=== PATIENT | female | born 1995 | race Caucasian/White ===

== ENCOUNTER 2017-01-11 22:07 | Emergency (ER) | payer OTHER ==
[2017-01-11 22:15] VITALS: TEMP 98
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
[2017-01-12] MEDS ORDERED: LORazepam 1 MG TAB PO STA (01:28)
[2017-01-12 01:43] VITALS: BP 124/64; PULSE 90; RESP 20
== END 2017-01-12 01:42 | disposition home or self-care (01) ==
LOC: EC 22:07
DX: F41.9 Anxiety disorder, unspecified (principal); R45.851 Suicidal ideations; F32.9 Major depressive disorder, single episode, unspecified; F17.200 Nicotine dependence, unspecified, uncomplicated; Z88.5 Allergy status to narcotic agent; Z88.8 Allergy status to other drugs, medicaments and biological substances; Z79.899 Other long term (current) drug therapy
CPT/HCPCS: 80306; 81025; 82075; 99284

== ENCOUNTER 2017-03-24 17:27 | Emergency (ER) | payer OTHER ==
[2017-03-24 17:52] VITALS: RESP 18; TEMP 98.2
[2017-03-24] MEDS ORDERED: SODIUM CHLORIDE 0.9% 1,000 ML IV STA ×2 (18:28)
[2017-03-24 18:51] LABS: Appearance,Urine Cloudy (Clear); Bacteria,Urine Rare /hpf; Bilirubin,Urine Negative (Negative); Glucose,Urine (UA) Negative (Negative); Ketones,Urine Negative (Negative); Leukocyte Esterase,Urine Moderate (Negative); Mucus,Urine Few /hpf; Nitrite,Urine Negative (Negative); Particle Count 14581; Protein,Urine Trace (Negative); RBC,Urine 1 /hpf (0-5); Specific Gravity,Urine 1.016 (1.001-1.035); Squamous Epithelial Cell,Urine 39 /hpf (0-4); UA Billing (MACRO vs. MICRO) MICRO; WBC,Urine 6 /hpf (0-5)
[2017-03-24] MEDS ORDERED: ONDANSETRON 4 MG/2 ML VIAL IVP STA (19:37)
[2017-03-24] MEDS ORDERED: KETOROLAC 30 MG/ML 1 ML VIAL IVP STA (19:37)
--- NOTE | 2017-03-24 19:42 | ED ---
Abdominal Pain HPI - General Chief Complaint: Abdominal Pain Stated Complaint: RT SIDE PAIN, NV FLU LIKE SYMPTOMS Time Seen by Provider: 03/24/17 18:18 Source: patient, RN notes reviewed Mode of arrival: ambulatory Limitations: no limitations - History of Present Illness Initial Comments: This is a 21-year-old female with chief complaint of 2 weeks of right upper quadrant and right flank abdominal pain. Patient reports that she's her primary care provider 2 days ago and was told that she had blood in her urine. She denies any other associated symptoms like dysuria or polyuria. Patient states that she's had no fever was felt chilled. She reports that she's had no nausea or vomiting, diarrhea or blood in her stools. 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 She states that the pain seems to be worse with eating however she does notice a constant dull pain. She reports that she's not been able to eat or drink much and feels very dehydrated. She denies any chest pain, shortness of breath, headache, peripheral paresthesias, vaginal discharge. - Related Data Home Medications Medication Instructions Recorded Confirmed Dicyclomine HCl 10 mg PO BID PRN 06/09/16 03/24/17 LORazepam [Ativan] 1 mg PO BID PRN 01/11/17 03/24/17 Ziprasidone HCl [Geodon] 40 mg PO BID 01/11/17 03/24/17 traZODone HCL 300 mg PO HS 01/11/17 03/24/17 Cyclobenzaprine [Flexeril] 10 mg PO HS 03/24/17 03/24/17 Fluticasone Nasal Shell [Flonase 2 spr EA NOSTRIL DAILY PRN 03/24/17 03/24/17 Nasal Shell] Prazosin [Minipress] 1 mg PO HS 03/24/17 03/24/17 Previous Rx's Medication Instructions Recorded DULoxetine HCL [Cymbalta] 60 mg PO DAILY 30 Days 06/14/16 hydrOXYzine PAMOATE [Vistaril] 25 mg PO DAILY 30 Days 06/14/16 Acetaminophen-Codeine 300-30mg 1 tab PO Q6H PRN #8 tablet 03/24/17 [Tylenol #3] Ciprofloxacin HCl [Cipro] 500 mg PO Q12HR #14 tablet 03/24/17 Ondansetron Odt [Zofran Odt] 4 mg PO Q8HR PRN #12 tab 03/24/17 Allergies Allergy/AdvReac Type Severity Reaction Status Date / Time morphine AdvReac Severe Nausea & Verified 03/24/17 18:45 Vomiting phenobarbital AdvReac pt becomes Verified 03/24/17 18:45 extremely aggressive Review of Systems ROS Statement: Those systems with pertinent positive or pertinent negative responses have been documented in the HPI. ROS Other: All systems not noted in ROS Statement are negative. 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 Liver tumor History of Any Multi-Drug Resistant Organisms: None Reported Additional Past Surgical History / Comment(s): BMT. JAW SX TO MOVE JAW FORWARD 3 INCHES-HAS PLATES AND SCREWS. PEG TUB PLACED CHILD AND REMOVED. resection of liver 05/19/15 Past Anesthesia/Blood Transfusion Reactions: No Reported Reaction Past Psychological History: Anxiety, Bipolar, Depression Additional Psychological History / Comment(s): PERISYLVAIN SYNDROME Smoking Status: Current some day smoker Past Alcohol Use History: Occasional Past Drug Use History: None Reported - Past Family History Mother Family Medical History: No Reported History General Exam - General Exam Comments Initial Comments: This is a pleasant 21-year-old female. No distress. Limitations: no limitations General appearance: alert, in no apparent distress Head exam: Present: atraumatic, normocephalic, normal inspection Eye exam: Present: normal appearance, PERRL, EOMI. Absent: scleral icterus, conjunctival injection, periorbital swelling ENT exam: Present: normal exam, normal oropharynx, mucous membranes moist, TM's normal bilaterally Neck exam: Present: normal inspection. Absent: tenderness, meningismus, lymphadenopathy Respiratory exam: Present: normal lung sounds bilaterally. Absent: respiratory distress, wheezes, rales, rhonchi, stridor Cardiovascular Exam: Present: regular rate, normal rhythm, normal heart sounds. Absent: systolic murmur, diastolic murmur, rubs, gallop, clicks GI/Abdominal exam: Present: soft, tenderness (Right upper quadrant tenderness.) , normal bowel sounds. Absent: distended, guarding, rebound, rigid Extremities exam: Present: normal inspection, full ROM, normal capillary refill. Absent: tenderness, pedal edema, joint swelling, calf tenderness Back exam: Present: normal inspection, full ROM, tenderness (Patient has right flank tenderness.) Neurological exam: Present: alert, oriented X3, CN II-XII intact Psychiatric exam: Present: normal affect, normal mood Skin exam: Present: warm, dry, intact, normal color. Absent: rash Course Vital Signs 03/24/17 03/24/17 03/24/17 17:47 20:58 22:47 Temperature 98.2 F Pulse Rate 104 H 102 H 90 Respiratory 18 18 18 Rate Blood Pressure 117/77 136/85 115/78 O2 Sat by Pulse 99 100 98 Oximetry Medical Decision Making - Medical Decision Making Physical pleasant 21-year-old female with chief complaint of right upper quadrant flank pain. All lab work was reviewed and is negative except for a blood in her urine. denies being on her period, vaginal discharge. All of her imaging studies were negative. No evidence of cholecystitis, CAT scan is negative. Patient will be discharged at this time with nausea medication. Instructed to follow-up with her primary care provider if symptoms continue persist. She will be started on antibiotic for UTI. Patient agrees to treatment plan will comply. Return parameters were discussed. - Lab Data Result diagrams: 03/24/17 19:30 03/24/17 19:30 Lab Results 03/24/17 03/24/17 03/24/17 Range/Units 18:30 18:30 19:30 WBC (3.8-10.6) k/uL RBC (3.80-5.40) m/uL Hgb (11.4-16.0) gm/dL Hct (34.0-46.0) % MCV (80.0-100.0) fL MCH (25.0-35.0) pg MCHC (31.0-37.0) g/dL RDW (11.5-15.5) % Plt Count (150-450) k/uL Neutrophils % % Lymphocytes % % Monocytes % % Eosinophils % % Basophils % % Neutrophils # (1.3-7.7) k/uL Lymphocytes # (1.0-4.8) k/uL Monocytes # (0-1.0) k/uL Eosinophils # (0-0.7) k/uL Basophils # (0-0.2) k/uL Sodium 139 (137-145) mmol/L Potassium 4.1 (3.5-5.1) mmol/L Chloride 105 (98-107) mmol/L Carbon Dioxide 23 (22-30) mmol/L Anion Gap 11 mmol/L BUN 9 (7-17) mg/dL Creatinine 0.63 (0.52-1.04) mg/dL Est GFR (MDRD) Af Amer >60 (>60 ml/min/1.73 sqM) Est GFR (MDRD) Non-Af >60 (>60 ml/min/1.73 sqM) Glucose 80 (74-99) mg/dL Calcium 9.5 (8.4-10.2) mg/dL Total Bilirubin 0.7 (0.2-1.3) mg/dL AST 24 (14-36) U/L ALT 27 (9-52) U/L Alkaline Phosphatase 93 (38-126) U/L Total Protein 7.8 (6.3-8.2) g/dL Albumin 4.5 (3.5-5.0) g/dL Amylase 52 (30-110) U/L Lipase 75 (23-300) U/L Urine Color Yellow Urine Appearance Cloudy H (Clear) Urine pH 7.0 (5.0-8.0) Ur Specific [place] 1.016 (1.001-1.035) Urine Protein Trace H (Negative) Urine Glucose (UA) Negative (Negative) Urine Ketones Negative (Negative) Urine Blood Moderate H (Negative) Urine Nitrite Negative (Negative) Urine Bilirubin Negative (Negative) Urine Urobilinogen 2.0 (<2.0) mg/dL Ur Leukocyte Esterase Moderate H (Negative) Urine RBC 1 (0-5) /hpf Urine WBC 6 H (0-5) /hpf Ur Squamous Epith Cells 39 H (0-4) /hpf Urine Bacteria Rare H (None) /hpf Urine Mucus Few H (None) /hpf Urine HCG, Qual Not Detected (Not Detectd) 03/24/17 Range/Units 19:30 WBC 6.3 (3.8-10.6) k/uL RBC 4.55 (3.80-5.40) m/uL Hgb 14.0 (11.4-16.0) gm/dL Hct 42.1 (34.0-46.0) % MCV 92.6 (80.0-100.0) fL MCH 30.7 (25.0-35.0) pg MCHC 33.1 (31.0-37.0) g/dL RDW 12.9 (11.5-15.5) % Plt Count 206 (150-450) k/uL Neutrophils % 63 % Lymphocytes % 28 % Monocytes % 5 % Eosinophils % 1 % Basophils % 1 % Neutrophils # 4.0 (1.3-7.7) k/uL Lymphocytes # 1.8 (1.0-4.8) k/uL Monocytes # 0.3 (0-1.0) k/uL Eosinophils # 0.1 (0-0.7) k/uL Basophils # 0.0 (0-0.2) k/uL Sodium (137-145) mmol/L Potassium (3.5-5.1) mmol/L Chloride (98-107) mmol/L Carbon Dioxide (22-30) mmol/L Anion Gap mmol/L BUN (7-17) mg/dL Creatinine (0.52-1.04) mg/dL Est GFR (MDRD) Af Amer (>60 ml/min/1.73 sqM) Est GFR (MDRD) Non-Af (>60 ml/min/1.73 sqM) Glucose (74-99) mg/dL Calcium (8.4-10.2) mg/dL Total Bilirubin (0.2-1.3) mg/dL AST (14-36) U/L ALT (9-52) U/L Alkaline Phosphatase (38-126) U/L Total Protein (6.3-8.2) g/dL Albumin (3.5-5.0) g/dL Amylase (30-110) U/L Lipase (23-300) U/L Urine Color Urine Appearance (Clear) Urine pH (5.0-8.0) Ur Specific [place] (1.001-1.035) Urine Protein (Negative) Urine Glucose (UA) (Negative) Urine Ketones (Negative) Urine Blood (Negative) Urine Nitrite (Negative) Urine Bilirubin (Negative) Urine Urobilinogen (<2.0) mg/dL Ur Leukocyte Esterase (Negative) Urine RBC (0-5) /hpf Urine WBC (0-5) /hpf Ur Squamous Epith Cells (0-4) /hpf Urine Bacteria (None) /hpf Urine Mucus (None) /hpf Urine HCG, Qual (Not Detectd) - Radiology Data Radiology results: report reviewed No acute intra-abdominal or intrapelvic process identified. Gallbladder ultrasound was negative for any acute process. KUB was normal bowel gas pattern. CT abdomen and pelvis are negative for any acute process. Disposition Clinical Impression: Right flank pain, Right upper quadrant pain, UTI (urinary tract infection) Disposition: HOME SELF-CARE Condition: Good Instructions: Abdominal Pain (ED), Urinary Tract Infection in Women (ED) Additional Instructions: Patient is follow-up with primary care provider if symptoms continue to persist. Completely antibiotic prescription as well as nausea medicine as needed. Return to the emergency department if any alarming signs or symptoms occur. Prescriptions: Acetaminophen-Codeine 300-30mg [Tylenol #3] 1 tab PO Q6H PRN #8 tablet PRN Reason: Pain Ciprofloxacin HCl [Cipro] 500 mg PO Q12HR #14 tablet Ondansetron Odt [Zofran Odt] 4 mg PO Q8HR PRN #12 tab PRN Reason: Nausea Referrals: Radha Herr DO [Primary Care Provider] - 1-2 days Time of Disposition: 22:06
[2017-03-24 19:47] LABS: Basophils % (A) 1 %; CH 29.8; CHCM 32.3; Eosinophils # (A) 0.1 k/uL (0-0.7); Eosinophils % (A) 1 %; HCT 42.1 % (34.0-46.0); HDW 2.09; Luc % (Auto) 2; Lymphocytes # (A) 1.8 k/uL (1.0-4.8); Lymphocytes % (A) 28 %; MCH 30.7 pg (25.0-35.0); MCHC 33.1 g/dL (31.0-37.0); MCV 92.6 fL (80.0-100.0); Mean Platelet Volume 9.5; Monocytes # (A) 0.3 k/uL (0-1.0); Monocytes % (A) 5 %; Neutrophils % (A) 63 %; RBC 4.55 m/uL (3.80-5.40); RDW 12.9 % (11.5-15.5); WBC 6.3 k/uL (3.8-10.6); WBC (Perox) 6.65
[2017-03-24 20:04] LABS: ALT 27 U/L (9-52); AST 24 U/L (14-36); Alkaline Phosphatase 93 U/L (38-126); Amylase 52 U/L (30-110); Anion Gap 11 mmol/L; Blood Urea Nitrogen 9 mg/dL (7-17); Calcium 9.5 mg/dL (8.4-10.2); Carbon Dioxide 23 mmol/L (22-30); Chloride 105 mmol/L (98-107); Glucose 80 mg/dL (74-99); Non-African American GFR(MDRD) >60 (>60 ml/min/1.73 sqM); Potassium 4.1 mmol/L (3.5-5.1); Sodium 139 mmol/L (137-145); Total Bilirubin 0.7 mg/dL (0.2-1.3); Total Protein 7.8 g/dL (6.3-8.2)
[2017-03-24] MEDS ORDERED: HYDROmorphone 1 MG/ML 1 ML SYRINGE IVP STA (20:46)
--- NOTE | 2017-03-24 20:57 | XR ---
EXAMINATION TYPE: XR KUB DATE OF EXAM: 03/24/2017 8:40 PM COMPARISON: NONE HISTORY: Pain TECHNIQUE: Single supine KUB image of the abdomen is obtained FINDINGS: Small bowel demonstrates no evidence for dilatation or air fluid levels. Gas and fecal material is seen in non-distended colon. No convincing evidence for pneumoperitoneum. No unusual calcifications. The lung bases are clear. The osseous structures are intact. IMPRESSION: 1. Overall nonobstructive bowel gas pattern.
--- NOTE | 2017-03-24 21:03 | US ---
EXAMINATION TYPE: US gallbladder DATE OF EXAM: 03/24/2017 8:34 PM COMPARISON: Prior US and CT in PACS CLINICAL HISTORY: Abdominal Pain. Removal of benign tumor from liver 2 years ago. Difficult exam due to large amount of overlying bowel gas EXAM MEASUREMENTS: Liver Length: 12.9 cm Gallbladder Wall: 0.2 cm CBD: 0.4 cm Right Kidney: 9.5 x 3.8 x 3.9 cm Pancreas: Obscured by bowel gas Liver: Difficult visualization due to large amount of overlying bowel gas, visualized portions wnl Gallbladder: wnl Evidence for sonographic Noriega's sign: No CBD: wnl as visualized, distal portion obscured by bowel gas Right Kidney: No hydronephrosis or masses seen IMPRESSION: 1. No distinct abnormality is appreciated with certainty.
--- NOTE | 2017-03-24 22:01 | CT ---
EXAMINATION TYPE: CT abdomen pelvis wo con DATE OF EXAM: 03/24/2017 9:55 PM COMPARISON: NONE HISTORY: RUQ pain for [address] DLP: 338.2 mGycm FINDINGS: LUNG BASES: No evidence for nodule. No evidence for infiltrate. LIVER/GB: The gallbladder is unremarkable. No space-occupying hepatic lesion. PANCREAS: No pancreatic mass identified. No inflammatory process seen. SPLEEN: No evidence for splenomegaly. No intrasplenic lesions seen. ADRENALS: No adrenal nodules identified. No evidence for thickening. KIDNEYS: No evidence for renal mass. No nephrolithiasis. No hydronephrosis. BOWEL: Appendix has a normal appearance. No evidence of bowel obstruction. No inflammatory process. Lymph nodes: No evidence for adenopathy greater than 1 cm. Abdominal aorta: Atheromatous changes seen. No evidence for aneurysm. Genital organs: No significant abnormality. Other: No significant abnormality. IMPRESSION: NO ACUTE INTRA-ABDOMINAL OR INTRAPELVIC PROCESS IDENTIFIED.
[2017-03-24] MEDS ORDERED: CIPROFLOXACIN HCL 500 MG TAB PO STA (22:09)
[2017-03-24 22:48] VITALS: BP 115/78; PULSE 90
== END 2017-03-24 22:47 | disposition home or self-care (01) ==
LOC: EC 17:27
DX: N39.0 Urinary tract infection, site not specified (principal); R10.11 Right upper quadrant pain; F31.9 Bipolar disorder, unspecified; F41.9 Anxiety disorder, unspecified; F17.200 Nicotine dependence, unspecified, uncomplicated; Z79.899 Other long term (current) drug therapy; Z88.5 Allergy status to narcotic agent; Z88.8 Allergy status to other drugs, medicaments and biological substances
CPT/HCPCS: 36415; 80053; 82150; 83690; 85025; 81001; 81025; 74000; 76705; 74176; 99284; 96374; 96375 ×2; 96361 ×3; J2405; J1885; J1170

== ENCOUNTER 2017-03-28 19:01 | Emergency (ER) | payer OTHER ==
[2017-03-28 19:08] VITALS: TEMP 97.5
[2017-03-28] MEDS ORDERED: ONDANSETRON 4 MG/2 ML VIAL IVP STA ×2 (19:29→21:27)
[2017-03-28] MEDS ORDERED: HYDROmorphone 1 MG/ML 1 ML SYRINGE IVP STA ×2 (19:29→21:27)
[2017-03-28] MEDS ORDERED: KETOROLAC 30 MG/ML 1 ML VIAL IVP STA (19:29)
[2017-03-28] MEDS ORDERED: SODIUM CHLORIDE 0.9% 1,000 ML IV ONE (19:29)
[2017-03-28 19:59] LABS: Appearance,Urine Clear (Clear); Bilirubin,Urine Negative (Negative); Glucose,Urine (UA) Negative (Negative); Ketones,Urine Negative (Negative); Leukocyte Esterase,Urine Negative (Negative); Nitrite,Urine Negative (Negative); Protein,Urine Negative (Negative); Specific Gravity,Urine 1.003 (1.001-1.035); UA Billing (MACRO vs. MICRO) CHEM; Urobilinogen,Urine <2.0 mg/dL (<2.0)
[2017-03-28 20:23] LABS: Basophils % (A) 1 %; CH 30.1; CHCM 33.3; Eosinophils # (A) 0.1 k/uL (0-0.7); Eosinophils % (A) 1 %; HCT 40.1 % (34.0-46.0); HDW 2.23; HGB 13.5 gm/dL (11.4-16.0); Luc # (Auto) 0.13; Luc % (Auto) 2; Lymphocytes # (A) 1.9 k/uL (1.0-4.8); Lymphocytes % (A) 25 %; MCH 30.5 pg (25.0-35.0); MCHC 33.6 g/dL (31.0-37.0); MCV 90.7 fL (80.0-100.0); Mean Platelet Volume 9.8; Monocytes # (A) 0.4 k/uL (0-1.0); Monocytes % (A) 5 %; Neutrophils % (A) 67 %; RBC 4.43 m/uL (3.80-5.40); RDW 12.7 % (11.5-15.5); WBC 7.4 k/uL (3.8-10.6); WBC (Perox) 7.57
[2017-03-28 20:35] LABS: ALT 28 U/L (9-52); AST 23 U/L (14-36); Alkaline Phosphatase 76 U/L (38-126); Anion Gap 11 mmol/L; Blood Urea Nitrogen 11 mg/dL (7-17); Calcium 9.9 mg/dL (8.4-10.2); Carbon Dioxide 25 mmol/L (22-30); Chloride 105 mmol/L (98-107); Glucose 98 mg/dL (74-99); Non-African American GFR(MDRD) >60 (>60 ml/min/1.73 sqM); Sodium 141 mmol/L (137-145); Total Bilirubin 0.3 mg/dL (0.2-1.3); Total Protein 7.4 g/dL (6.3-8.2)
--- NOTE | 2017-03-28 21:01 | US ---
EXAMINATION TYPE: US renals and bladder DATE OF EXAM: 03/28/2017 8:42 PM COMPARISON: Prior CT and US in PACS- 03/24/2017 CLINICAL HISTORY: Pain. EXAM MEASUREMENTS: Right Kidney: 9.3 x 3.7 x 4.4 cm Left Kidney: 9.5 x 3.5x 3.9 cm Right Kidney: No hydronephrosis or masses seen Left Kidney: No hydronephrosis or masses seen Bladder: wnl Bilateral Jets seen: Yes There is no evidence for hydronephrosis at this point in time. No nephrolithiasis is seen. No wei s are identified. The urinary bladder is anechoic. Bilateral ureteral jets are seen. IMPRESSION: Normal exam. No evidence of renal stone or obstruction. Normal urinary bladder..
[2017-03-28] MEDS ORDERED: HYDROcodone/APAP 5-325MG 1 EACH TAB PO STA (21:31)
--- NOTE | 2017-03-28 21:40 | ED ---
General Adult HPI - General Chief complaint: Abdominal Pain Stated complaint: Abd Pain Time Seen by Provider: 03/28/17 19:09 Source: patient, family, RN notes reviewed, old records reviewed Mode of arrival: ambulatory Limitations: no limitations - History of Present Illness Initial comments: 21-year-old female presenting for right flank pain. Patient states she has had similar symptoms for the past week. She was seen in the ED several days ago and had extensive workup and was found to have urinary tract infection. Patient states she's been taking her antibiotics. She states urinary symptoms seemed to improve. However she now has worsening right flank pain. She also has some associated nausea but no vomiting. She denies any diarrhea. She denies any fevers or chills. 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 Her mother is her guardian and present with her currently. The patient has tried Tylenol threes without significant improvement of her pain. She does have Zofran at home for nausea which is somewhat effective. - Related Data Home Medications Medication Instructions Recorded Confirmed Dicyclomine HCl 10 mg PO BID PRN 06/09/16 03/28/17 LORazepam [Ativan] 1 mg PO BID PRN 01/11/17 03/28/17 Ziprasidone HCl [Geodon] 40 mg PO BID 01/11/17 03/28/17 traZODone HCL 300 mg PO HS 01/11/17 03/28/17 Cyclobenzaprine [Flexeril] 10 mg PO HS 03/24/17 03/28/17 Fluticasone Nasal [place] [Flonase 2 spr EA NOSTRIL DAILY PRN 03/24/17 03/28/17 Nasal [place]] Prazosin [Minipress] 1 mg PO HS 03/24/17 03/28/17 Omeprazole 20 mg PO DAILY 03/28/17 03/28/17 Previous Rx's Medication Instructions Recorded DULoxetine HCL [Cymbalta] 60 mg PO DAILY 30 Days 06/14/16 hydrOXYzine PAMOATE [Vistaril] 25 mg PO DAILY 30 Days 06/14/16 Ciprofloxacin HCl [Cipro] 500 mg PO Q12HR #14 tablet 03/24/17 Ondansetron Odt [Zofran Odt] 4 mg PO Q8HR PRN #12 tab 03/24/17 HYDROcodone/APAP 5-325MG [[place] 1 tab PO Q6HR PRN #20 tab 03/28/17 5-325] Allergies Allergy/AdvReac Type Severity Reaction Status Date / Time morphine AdvReac Severe Nausea & Verified 03/28/17 19:30 Vomiting phenobarbital AdvReac pt becomes Verified 03/28/17 19:30 extremely aggressive Review of Systems ROS Statement: Those systems with pertinent positive or pertinent negative responses have been documented in the HPI. ROS Other: All systems not noted in ROS Statement are negative. 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 Liver tumor History of Any Multi-Drug Resistant Organisms: None Reported Additional Past Surgical History / Comment(s): BMT. JAW SX TO MOVE JAW FORWARD 3 INCHES-HAS PLATES AND SCREWS. PEG TUB PLACED CHILD AND REMOVED. resection of liver 05/19/15 Past Anesthesia/Blood Transfusion Reactions: No Reported Reaction Past Psychological History: Anxiety, Bipolar, Depression Additional Psychological History / Comment(s): PERISYLVAIN SYNDROME Smoking Status: Current some day smoker Past Alcohol Use History: Occasional Past Drug Use History: None Reported - Past Family History Mother Family Medical History: No Reported History General Exam - General Exam Comments Initial Comments: General: Awake and Alert. No acute distress. Does not appear acutely ill. Eyes: FLACA, EOM intact. No nystagmus. No scleral icterus. HENT: Atraumatic, normocephalic. Mucous membranes moist. Trachea midline. Neck: The neck is supple, there is no tenderness or JVD. Cardiovascular: Regular rate and rhythm. No murmur, rub, or gallop is appreciated. Distal pulses intact. Respiratory: Lungs are clear to auscultation bilaterally. No wheezes, rales, rhonchi. No respiratory distress. Gastrointestinal: Soft, Nontender. No rebound or guarding. Non-distended. No masses or organomegaly noted. Right CVA tenderness. Musculoskeletal: No tenderness other than CVA tenderness as above. Normal ROM. No gross deformity. Neurological: A&Ox3. Patient with chronic facial muscle weakness. Mild dysarthria which is chronic. Is able to move all extremities. Follows commands. Skin: Skin is warm and dry and no rashes or lesions are noted. Psychiatric: Cooperative, appropriate mood & affect, normal judgment. Limitations: no limitations Course Vital Signs 03/28/17 19:06 Temperature 97.5 F L Pulse Rate 93 Respiratory 16 Rate Blood Pressure 122/82 O2 Sat by Pulse 100 Oximetry Medical Decision Making - Medical Decision Making 21-year-old female with history of perisylvian syndrome. Patient with abdominal /right flank pain for the past week. Patient with right flank tenderness on exam but no evidence of acute peritonitis. Had extensive workup several days ago in the ED including CT abdomen and pelvis as well as right quadrant ultrasound. These labs and imaging were reviewed. Repeat lab work today shows stable CBC, stable BMP. LFTs within normal limits. Lipase negative. Renal ultrasound with no acute process. UA without evidence of infection. Patient reevaluated, states her pain is somewhat improved. Patient is given an additional dose of medication. Discussed uncertain etiology of her symptoms, but reassuring findings today in addition to several days ago with her workup in the ED. discussed close follow-up with PCP. Discussed follow-up with Dr. Frank GI. Discussed outpatient HIDA scan for further evaluation. Discussed possible musculoskeletal cause of her pain. Discussed finishing her course of Cipro although her UTI appears to be resolved at this point. Discussed managing her pain with different medications and Rx provided. She has Zofran at home for nausea. She also has muscle relaxer Flexeril to use at home. Discussed concerning signs symptoms for immediate return to the ED. Patient and mother agreeable with plan of discharge home. - Lab Data Result diagrams: 03/28/17 19:58 03/28/17 19:58 Lab Results 03/28/17 03/28/17 03/28/17 Range/Units 19:40 19:40 19:58 WBC 7.4 (3.8-10.6) k/uL RBC 4.43 (3.80-5.40) m/uL Hgb 13.5 (11.4-16.0) gm/dL Hct 40.1 (34.0-46.0) % MCV 90.7 (80.0-100.0) fL MCH 30.5 (25.0-35.0) pg MCHC 33.6 (31.0-37.0) g/dL RDW 12.7 (11.5-15.5) % Plt Count 199 (150-450) k/uL Neutrophils % 67 % Lymphocytes % 25 % Monocytes % 5 % Eosinophils % 1 % Basophils % 1 % Neutrophils # 5.0 (1.3-7.7) k/uL Lymphocytes # 1.9 (1.0-4.8) k/uL Monocytes # 0.4 (0-1.0) k/uL Eosinophils # 0.1 (0-0.7) k/uL Basophils # 0.0 (0-0.2) k/uL Sodium (137-145) mmol/L Potassium (3.5-5.1) mmol/L Chloride (98-107) mmol/L Carbon Dioxide (22-30) mmol/L Anion Gap mmol/L BUN (7-17) mg/dL Creatinine (0.52-1.04) mg/dL Est GFR (MDRD) Af Amer (>60 ml/min/1.73 sqM) Est GFR (MDRD) Non-Af (>60 ml/min/1.73 sqM) Glucose (74-99) mg/dL Calcium (8.4-10.2) mg/dL Total Bilirubin (0.2-1.3) mg/dL AST (14-36) U/L ALT (9-52) U/L Alkaline Phosphatase (38-126) U/L Total Protein (6.3-8.2) g/dL Albumin (3.5-5.0) g/dL Lipase (23-300) U/L Urine Color Colorless Urine Appearance Clear (Clear) Urine pH 6.0 (5.0-8.0) Ur Specific [place] 1.003 (1.001-1.035) Urine Protein Negative (Negative) Urine Glucose (UA) Negative (Negative) Urine Ketones Negative (Negative) Urine Blood Negative (Negative) Urine Nitrite Negative (Negative) Urine Bilirubin Negative (Negative) Urine Urobilinogen <2.0 (<2.0) mg/dL Ur Leukocyte Esterase Negative (Negative) Urine HCG, Qual Not Detected (Not Detectd) 03/28/17 Range/Units 19:58 WBC (3.8-10.6) k/uL RBC (3.80-5.40) m/uL Hgb (11.4-16.0) gm/dL Hct (34.0-46.0) % MCV (80.0-100.0) fL MCH (25.0-35.0) pg MCHC (31.0-37.0) g/dL RDW (11.5-15.5) % Plt Count (150-450) k/uL Neutrophils % % Lymphocytes % % Monocytes % % Eosinophils % % Basophils % % Neutrophils # (1.3-7.7) k/uL Lymphocytes # (1.0-4.8) k/uL Monocytes # (0-1.0) k/uL Eosinophils # (0-0.7) k/uL Basophils # (0-0.2) k/uL Sodium 141 (137-145) mmol/L Potassium 4.0 (3.5-5.1) mmol/L Chloride 105 (98-107) mmol/L Carbon Dioxide 25 (22-30) mmol/L Anion Gap 11 mmol/L BUN 11 (7-17) mg/dL Creatinine 0.70 (0.52-1.04) mg/dL Est GFR (MDRD) Af Amer >60 (>60 ml/min/1.73 sqM) Est GFR (MDRD) Non-Af >60 (>60 ml/min/1.73 sqM) Glucose 98 (74-99) mg/dL Calcium 9.9 (8.4-10.2) mg/dL Total Bilirubin 0.3 (0.2-1.3) mg/dL AST 23 (14-36) U/L ALT 28 (9-52) U/L Alkaline Phosphatase 76 (38-126) U/L Total Protein 7.4 (6.3-8.2) g/dL Albumin 4.4 (3.5-5.0) g/dL Lipase 70 (23-300) U/L Urine Color Urine Appearance (Clear) Urine pH (5.0-8.0) Ur Specific [place] (1.001-1.035) Urine Protein (Negative) Urine Glucose (UA) (Negative) Urine Ketones (Negative) Urine Blood (Negative) Urine Nitrite (Negative) Urine Bilirubin (Negative) Urine Urobilinogen (<2.0) mg/dL Ur Leukocyte Esterase (Negative) Urine HCG, Qual (Not Detectd) - Radiology Data Radiology results: report reviewed, image reviewed Disposition Clinical Impression: Right flank pain, Nonspecific abdominal pain, Nausea Disposition: HOME SELF-CARE Condition: Stable Instructions: Abdominal Pain (ED), Flank Pain (ED) Additional Instructions: Please follow up with Dr. Frank and discuss a HIDA scan and EGD. Prescriptions: HYDROcodone/APAP 5-325MG [[place] 5-325] 1 tab PO Q6HR PRN #20 tab PRN Reason: Pain Referrals: Radha Herr DO [Primary Care Provider] - 1-2 days Michele Frank MD [STAFF PHYSICIAN] - 1-2 days Time of Disposition: 21:31
[2017-03-28 22:20] VITALS: BP 127/77; PULSE 100; RESP 18
== END 2017-03-28 22:20 | disposition home or self-care (01) ==
LOC: EC 19:01
DX: R10.9 Unspecified abdominal pain (principal); R11.0 Nausea; F31.9 Bipolar disorder, unspecified; F17.200 Nicotine dependence, unspecified, uncomplicated; F41.9 Anxiety disorder, unspecified; Z79.899 Other long term (current) drug therapy; Z88.5 Allergy status to narcotic agent; Z88.8 Allergy status to other drugs, medicaments and biological substances; Z87.440 Personal history of urinary (tract) infections
CPT/HCPCS: 36415; 80053; 83690; 85025; 81003; 81025; 76770; 99284; 96374; 96375 ×2; 96376 ×2; 96361; J2405; J1885; J1170

== ENCOUNTER 2017-03-30 12:41 | Observation (INO) | payer OTHER ==
[2017-03-30] MEDS ORDERED: DICYCLOMINE 10 MG/ML 2 ML AMP IM STA (13:31)
--- NOTE | 2017-03-30 13:35 | ED ---
Abdominal Pain HPI - General Chief Complaint: Abdominal Pain Stated Complaint: Time Seen by Provider: 03/30/17 12:57 Source: patient Mode of arrival: wheelchair Limitations: no limitations - History of Present Illness MD Complaint: abdominal pain Onset/Timin -: week(s) Location: RUQ Radiation: none Migration to: no migration Severity: severe Quality: sharp Consistency: constant Improves With: nothing Worsens With: nothing Associated Symptoms: denies other symptoms Treatments Prior to Arrival: prescription analgesics - Related Data Home Medications Medication Instructions Recorded Confirmed Dicyclomine HCl 10 mg PO BID PRN 06/09/16 03/30/17 LORazepam [Ativan] 1 mg PO BID PRN 01/11/17 03/30/17 Ziprasidone HCl [Geodon] 40 mg PO BID 01/11/17 03/30/17 traZODone HCL 300 mg PO HS 01/11/17 03/30/17 Cyclobenzaprine [Flexeril] 10 mg PO HS 03/24/17 03/30/17 Fluticasone Nasal [place] [Flonase 2 spr EA NOSTRIL DAILY PRN 03/24/17 03/30/17 Nasal [place]] Prazosin [Minipress] 1 mg PO HS 03/24/17 03/30/17 Omeprazole 20 mg PO DAILY 03/28/17 03/30/17 Previous Rx's Medication Instructions Recorded DULoxetine HCL [Cymbalta] 60 mg PO DAILY 30 Days 06/14/16 hydrOXYzine PAMOATE [Vistaril] 25 mg PO DAILY 30 Days 06/14/16 Ciprofloxacin HCl [Cipro] 500 mg PO Q12HR #14 tablet 03/24/17 Ondansetron Odt [Zofran Odt] 4 mg PO Q8HR PRN #12 tab 03/24/17 HYDROcodone/APAP 5-325MG [[place] 1 tab PO Q6HR PRN #20 tab 03/28/17 5-325] Allergies Allergy/AdvReac Type Severity Reaction Status Date / Time morphine AdvReac Severe Nausea & Verified 03/30/17 13:18 Vomiting phenobarbital AdvReac pt becomes Verified 03/30/17 13:18 extremely aggressive Review of Systems ROS Statement: Those systems with pertinent positive or pertinent negative responses have been documented in the HPI. ROS Other: All systems not noted in ROS Statement are negative. Constitutional: Denies: fever, chills Respiratory: Denies: cough, dyspnea Cardiovascular: Denies: chest pain, palpitations Gastrointestinal: Reports: abdominal pain, constipation. 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 Liver tumor History of Any Multi-Drug Resistant Organisms: None Reported Additional Past Surgical History / Comment(s): BMT. JAW SX TO MOVE JAW FORWARD 3 INCHES-HAS PLATES AND SCREWS. PEG TUB PLACED CHILD AND REMOVED. resection of liver 05/19/15 Past Anesthesia/Blood Transfusion Reactions: No Reported Reaction Past Psychological History: Anxiety, Bipolar, Depression Additional Psychological History / Comment(s): PERISYLVAIN SYNDROME Smoking Status: Light tobacco smoker Past Alcohol Use History: Occasional Past Drug Use History: None Reported - Past Family History Mother Family Medical History: No Reported History General Exam Limitations: no limitations General appearance: alert, in no apparent distress Head exam: Present: atraumatic, normocephalic Eye exam: Present: normal appearance. Absent: scleral icterus, conjunctival injection ENT exam: Present: normal oropharynx Respiratory exam: Present: normal lung sounds bilaterally. Absent: respiratory distress, wheezes, rales, rhonchi, stridor Cardiovascular Exam: Present: regular rate, normal rhythm, normal heart sounds. Absent: systolic murmur, diastolic murmur, rubs, gallop GI/Abdominal exam: Present: soft, tenderness (Right upper quadrant), diminished bowel sounds. Absent: distended, guarding, rebound, rigid, organomegaly, mass, pulsatile mass, hernia Extremities exam: Present: normal inspection. Absent: pedal edema, calf tenderness Back exam: Present: normal inspection. Absent: CVA tenderness (R), CVA tenderness (L) Skin exam: Present: warm, dry, intact, normal color. Absent: rash, cyanosis, diaphoretic, erythema, petechiae, pallor, mottled Course Vital Signs 03/30/17 03/30/17 12:46 13:09 Temperature 99.3 F 98.9 F Pulse Rate 100 Respiratory 18 Rate Blood Pressure 111/74 O2 Sat by Pulse 99 Oximetry Medical Decision Making - Lab Data Result diagrams: 03/30/17 14:00 03/30/17 14:00 Lab Results 03/30/17 03/30/17 03/30/17 Range/Units 14:00 14:00 14:45 WBC 5.5 (3.8-10.6) k/uL RBC 4.28 (3.80-5.40) m/uL Hgb 12.6 (11.4-16.0) gm/dL Hct 39.8 (34.0-46.0) % MCV 93.1 (80.0-100.0) fL MCH 29.6 (25.0-35.0) pg MCHC 31.7 (31.0-37.0) g/dL RDW 13.0 (11.5-15.5) % Plt Count 187 (150-450) k/uL Neutrophils % 61 % Lymphocytes % 30 % Monocytes % 6 % Eosinophils % 1 % Basophils % 0 % Neutrophils # 3.3 (1.3-7.7) k/uL Lymphocytes # 1.6 (1.0-4.8) k/uL Monocytes # 0.3 (0-1.0) k/uL Eosinophils # 0.1 (0-0.7) k/uL Basophils # 0.0 (0-0.2) k/uL Sodium 139 (137-145) mmol/L Potassium 4.2 (3.5-5.1) mmol/L Chloride 104 (98-107) mmol/L Carbon Dioxide 27 (22-30) mmol/L Anion Gap 8 mmol/L BUN 9 (7-17) mg/dL Creatinine 0.76 (0.52-1.04) mg/dL Est GFR (MDRD) Af Amer >60 (>60 ml/min/1.73 sqM) Est GFR (MDRD) Non-Af >60 (>60 ml/min/1.73 sqM) Glucose 84 (74-99) mg/dL Calcium 9.5 (8.4-10.2) mg/dL Total Bilirubin 0.5 (0.2-1.3) mg/dL AST 18 (14-36) U/L ALT 22 (9-52) U/L Alkaline Phosphatase 75 (38-126) U/L Total Protein 7.0 (6.3-8.2) g/dL Albumin 4.1 (3.5-5.0) g/dL Amylase 40 (30-110) U/L Lipase 54 (23-300) U/L Urine Color Light Yellow Urine Appearance Cloudy H (Clear) Urine pH 6.0 (5.0-8.0) Ur Specific [place] 1.004 (1.001-1.035) Urine Protein Negative (Negative) Urine Glucose (UA) Negative (Negative) Urine Ketones Negative (Negative) Urine Blood Trace H (Negative) Urine Nitrite Negative (Negative) Urine Bilirubin Negative (Negative) Urine Urobilinogen <2.0 (<2.0) mg/dL Ur Leukocyte Esterase Negative (Negative) Urine RBC <1 (0-5) /hpf Urine WBC 1 (0-5) /hpf Ur Squamous Epith Cells 13 H (0-4) /hpf Urine Bacteria Rare H (None) /hpf Urine Mucus Rare H (None) /hpf Disposition Clinical Impression: Abdominal pain, Right upper quadrant pain Disposition: ADMITTED IP TO THIS HOSP Condition: Fair
[2017-03-30] MEDS ORDERED: KETOROLAC 30 MG/ML 1 ML VIAL IVP STA (14:02)
[2017-03-30 14:26] LABS: Basophils % (A) 0 %; CH 30.1; CHCM 32.4; Eosinophils # (A) 0.1 k/uL (0-0.7); Eosinophils % (A) 1 %; HCT 39.8 % (34.0-46.0); HDW 2.07; HGB 12.6 gm/dL (11.4-16.0); Luc # (Auto) 0.11; Luc % (Auto) 2; Lymphocytes # (A) 1.6 k/uL (1.0-4.8); Lymphocytes % (A) 30 %; MCH 29.6 pg (25.0-35.0); MCHC 31.7 g/dL (31.0-37.0); MCV 93.1 fL (80.0-100.0); Monocytes # (A) 0.3 k/uL (0-1.0); Monocytes % (A) 6 %; Neutrophils # (A) 3.3 k/uL (1.3-7.7); Neutrophils % (A) 61 %; RBC 4.28 m/uL (3.80-5.40); WBC 5.5 k/uL (3.8-10.6); WBC (Perox) 5.58
[2017-03-30 14:39] LABS: ALT 22 U/L (9-52); AST 18 U/L (14-36); Alkaline Phosphatase 75 U/L (38-126); Amylase 40 U/L (30-110); Anion Gap 8 mmol/L; Blood Urea Nitrogen 9 mg/dL (7-17); Calcium 9.5 mg/dL (8.4-10.2); Carbon Dioxide 27 mmol/L (22-30); Chloride 104 mmol/L (98-107); Glucose 84 mg/dL (74-99); Non-African American GFR(MDRD) >60 (>60 ml/min/1.73 sqM); Potassium 4.2 mmol/L (3.5-5.1); Sodium 139 mmol/L (137-145); Total Bilirubin 0.5 mg/dL (0.2-1.3)
--- NOTE | 2017-03-30 14:49 | XR ---
Abdomen HISTORY: Right upper quadrant pain Single frontal view of the abdomen correlated to previous exam March 2017, CT abdomen march 7 Lung bases are not included on the exam. There is no bowel obstruction or pneumoperitoneum. No pathol ogic change. IMPRESSION: Stable exam, no acute abnormalities evident
[2017-03-30 15:07] LABS: Appearance,Urine Cloudy (Clear); Bacteria,Urine Rare /hpf; Bilirubin,Urine Negative (Negative); Glucose,Urine (UA) Negative (Negative); Ketones,Urine Negative (Negative); Leukocyte Esterase,Urine Negative (Negative); Mucus,Urine Rare /hpf; Nitrite,Urine Negative (Negative); Particle Count 5289; Protein,Urine Negative (Negative); RBC,Urine <1 /hpf (0-5); Specific Gravity,Urine 1.004 (1.001-1.035); Squamous Epithelial Cell,Urine 13 /hpf (0-4); UA Billing (MACRO vs. MICRO) MICRO; Urobilinogen,Urine <2.0 mg/dL (<2.0); WBC,Urine 1 /hpf (0-5)
[2017-03-30] MEDS ORDERED: HYDROmorphone 1 MG/ML 1 ML SYRINGE IVP STA (15:51)
[2017-03-30] MEDS ORDERED: NALOXONE 0.4 MG/ML 1 ML VIAL IV PRN (15:52)
[2017-03-30] MEDS ORDERED: DOCUSATE 100 MG CAP PO PRN (15:52)
[2017-03-30] MEDS ORDERED: DICYCLOMINE 10 MG CAP PO PRN (15:54)
[2017-03-30] MEDS ORDERED: FLUTICASONE 50MCG/SPRAY NASAL 16GM EA NOSTRIL PRN (15:54)
[2017-03-30] MEDS: SODIUM CHLORIDE 0.9% 1,000 ML IV SCH (16:18)
[2017-03-30] MEDS: ONDANSETRON ODT 4 MG TAB PO PRN (18:41)
[2017-03-30] MEDS: ZIPRASIDONE 40 MG CAP PO SCH (19:26)
[2017-03-30] MEDS: HYDROmorphone 1 MG/ML 1 ML SYRINGE IVP PRN (20:49)
[2017-03-30] MEDS: traZODone HCL 100 MG TAB PO SCH (21:07)
[2017-03-30] MEDS: LORazepam 1 MG TAB PO PRN (21:07)
[2017-03-30] MEDS: PRAZOSIN 1 MG CAP PO SCH (21:07)
[2017-03-31] MEDS: HYDROmorphone 1 MG/ML 1 ML SYRINGE IVP PRN ×4 (08:59→17:59)
--- NOTE | 2017-03-31 09:35 | NM ---
EXAMINATION TYPE: NM hepatobiliary w EF DATE OF EXAM: 03/31/2017 9:17 AM COMPARISON: CT abdomen pelvis March 2017 HISTORY: Pain in right upper quadrant TECHNIQUE: After the intravenous administration of 5.3 mCi Tc 99m Mebrofenin hepatobiliary scintigrap hy is performed. Immediate images post injection. FINDINGS: There is satisfactory initial accumulation of tracer by the liver. The gallbladder is visualized wit hin 12 minutes. The small bowel activity is noted within 22 minutes. At one hour 8 ounces of oral e nsure plus is given to mimic CCK and gallbladder ejection fraction is calculated at 41 %, in the norm al range. Therefore there is no scintigraphic evidence of cystic or common bile duct obstruction to suggest acute cholecystitis or gallbladder dyskinesia. IMPRESSION: Exam is within normal limits.
[2017-03-31 09:37] LABS: Basophils % (A) 1 %; CH 29.9; CHCM 32.3; Eosinophils # (A) 0.1 k/uL (0-0.7); Eosinophils % (A) 1 %; HCT 39.4 % (34.0-46.0); HDW 2.09; HGB 12.7 gm/dL (11.4-16.0); Luc # (Auto) 0.09; Luc % (Auto) 2; Lymphocytes # (A) 1.5 k/uL (1.0-4.8); Lymphocytes % (A) 26 %; MCHC 32.3 g/dL (31.0-37.0); Mean Platelet Volume 9.9; Monocytes # (A) 0.4 k/uL (0-1.0); Monocytes % (A) 6 %; Neutrophils # (A) 3.7 k/uL (1.3-7.7); Neutrophils % (A) 64 %; RBC 4.24 m/uL (3.80-5.40); WBC 5.8 k/uL (3.8-10.6); WBC (Perox) 6.15
[2017-03-31 10:05] LABS: Anion Gap 9 mmol/L; Blood Urea Nitrogen 9 mg/dL (7-17); Calcium 9.2 mg/dL (8.4-10.2); Carbon Dioxide 25 mmol/L (22-30); Chloride 107 mmol/L (98-107); Glucose 86 mg/dL (74-99); Non-African American GFR(MDRD) >60 (>60 ml/min/1.73 sqM); Sodium 141 mmol/L (137-145)
[2017-03-31] MEDS: ONDANSETRON ODT 4 MG TAB PO PRN (10:54)
[2017-03-31] MEDS: PANTOPRAZOLE 40 MG TABLET PO SCH (10:54)
[2017-03-31] MEDS ORDERED: diphenhydrAMINE 25 MG CAP PO SCH (11:00)
[2017-03-31] MEDS: DULoxetine HCL 60 MG CAPSULE.DR PO SCH (11:25)
[2017-03-31] MEDS: ZIPRASIDONE 40 MG CAP PO SCH ×2 (11:25→20:02)
[2017-03-31] MEDS: hydrOXYzine PAMOATE 25 MG CAP PO SCH (11:25)
[2017-03-31] MEDS: diphenhydrAMINE 25 MG CAP PO PRN (11:59)
[2017-03-31] MEDS: LORazepam 1 MG TAB PO PRN (13:02)
[2017-03-31] MEDS ORDERED: RX INFO: IV CONTRAST WAS GIVEN 1 EACH MISC MISCELLANE PRN (13:14)
[2017-03-31] MEDS ORDERED: methylPREDNISolone SOD SUCCI 125 MG/2 ML VIAL IV STA (13:15)
--- NOTE | 2017-03-31 13:49 | P.HPIM ---
History of Present Illness H&P Date: 03/31/17 Chief Complaint: Right-sided flank and abdominal pain This is a 21-year-old female, a patient of [facility]. She has a known past medical history of perisylvian syndrome, a benign liver tumor that was resected, depression, bipolar, and migraine history. Patient has been into the emergency room 3 times complaining of this abdominal pain. She had a computed tomography scan with no contrast on 03/24/2017 which was negative. She was found to have a urinary tract infection at that time and was treated with antibiotics. She reported back to the hospital on the and then again on the . Therefore she was admitted for further evaluation. She reports right flank pain right-sided abdominal pain that goes down into the right groin. Surgical service was consulted. HIDA scan was completed and was negative. As well as she had a KUB which was negative. Amylase and lipase are normal her urinalysis does show some trace blood with 13th,'s epithelial cells. She has no urinary symptoms. She did have some tachycardia on admission. Which is now improved. She denies any chest pain shortness of breath. She does admit to having some nausea. Last bowel movement was 3 days ago. 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 History of Any Multi-Drug Resistant Organisms: None Reported Additional Past Surgical History / Comment(s): wears knee braces (antonio). JAW SX TO MOVE JAW FORWARD 3 INCHES-HAS PLATES AND SCREWS. PEG TUB PLACED CHILD AND REMOVED, tubes in ear as child,colonoscopy. resection of liver for benign tumor 05/19/15 Past Anesthesia/Blood Transfusion Reactions: No Reported Reaction Additional Past Anesthesia/Blood Transfusion Reaction / Comment(s): pt had a blood transfuion w/ liver sx- no reaction Past Psychological History: Anxiety, Bipolar, Depression Additional Psychological History / Comment(s): PERISYLVAIN SYNDROME. per pt's mom -about a month ago pt attemped to cut her wrist but did'nt break skin. pt [facility] a counselor and [facility]. at time of admit pt el any thoughts of wanting to hurt self. has had difficulty sleeping d/t abd pain Smoking Status: Current some day smoker Past Alcohol Use History: Rare Additional Past Alcohol Use History / Comment(s): pt's mom stated pt may have a cig here and there on a weekend. Past Drug Use History: None Reported - Past Family History Mother Family Medical History: No Reported History Medications and Allergies Home Medications Medication Instructions Recorded Confirmed Type Dicyclomine HCl 10 mg PO BID PRN 06/09/16 03/30/17 History LORazepam [Ativan] 1 mg PO BID PRN 01/11/17 03/30/17 History Ziprasidone HCl [Geodon] 40 mg PO BID 01/11/17 03/30/17 History traZODone HCL 300 mg PO HS 01/11/17 03/30/17 History Cyclobenzaprine [Flexeril] 10 mg PO HS 03/24/17 03/30/17 History Fluticasone Nasal [place] [Flonase 2 spr EA NOSTRIL DAILY PRN 03/24/17 03/30/17 History Nasal [place]] Prazosin [Minipress] 1 mg PO HS 03/24/17 03/30/17 History Omeprazole 20 mg PO DAILY 03/28/17 03/30/17 History Allergies Allergy/AdvReac Type Severity Reaction Status Date / Time morphine AdvReac Severe Nausea & Verified 03/30/17 13:18 Vomiting phenobarbital AdvReac pt becomes Verified 03/30/17 13:18 extremely aggressive Physical Exam Vitals: Vital Signs Temp Pulse Pulse Pulse Resp BP BP 03/31/17 08:00 120 H 03/31/17 07:00 97.3 F L 120 H 18 106/65 03/31/17 00:00 86 16 03/30/17 23:00 97 F L 86 16 03/30/17 20:40 119 H 20 03/30/17 18:30 95 03/30/17 18:23 119 H 05/10/17 17:52 97.0 F L 119 H 20 114/64 03/30/17 16:19 99.3 F 109 H 14 117/68 Pulse Ox 03/31/17 08:00 03/31/17 07:00 99 03/31/17 00:00 03/30/17 23:00 03/30/17 20:40 03/30/17 18:30 03/30/17 18:23 03/30/17 17:52 98 03/30/17 16:19 99 Intake and Output 03/30/17 03/31/17 03/31/17 22:59 06:59 14:59 Intake Total 100 Balance 100 Intake: Oral 100 Other: Voiding Method Toilet Toilet # Voids 1 1 Weight 56.744 kg Head normocephalic Neck supple Lungs clear to auscultation bilaterally no wheezing or crackles Heart regular rate and rhythm S1-S2, no rub or gallop Abdomen is soft nondistended tender along the right CVA right side of her abdomen and groin area. No skin discoloration or bruising. Extremities no edema Neuro alert and orientated to 3 Results CBC & Chem 7: 03/31/17 09:16 03/31/17 09:16 Thrombosis Risk Factor Assmnt - Choose All That Apply Any of the Below Risk Factors Present?: No Other Risk Factors: No Other congenital or acquired thrombophilia - If yes, enter type in comment: No Thrombosis Risk Factor Assessment Level: Very Low Risk Assessment and Plan Plan: 1. Right flank and abdominal pain radiating into the right groin. Computed tomography scan of the abdomen from 03/24/2017 shows no evidence of kidney stones and was a negative study. Patient had a normal HIDA scan today and KUB was negative. Recently treated for UTI. Surgical service is following. Colonoscopy in 2015 was normal. Check computed tomography scan of abdomen and pelvis with oral and IV contrast 2. Recently treated UTI. 3. History of benign liver tumor that was resected at [facility] about 2 years ago 4. History of perisylvian syndrome 5. History of depression and bipolar 6. Nausea continue Zofran as needed 7. Tachycardia: Fluids are currently 100. We'll check EKG to confirm sinus tachycardia and place patient on telemetry monitoring. Could be pain related. We'll monitor 8. Itching due to the Dilaudid. Benadryl 25 mg by mouth as needed and 1 dose of IV Solu-Medrol been ordered GI prophylaxis Protonix and DVT prophylaxis subcu heparin Time with Patient: Greater than 30 (Greater than 50% of the total time spent in counseling and coordination of care.I performed an examination of the patient and discussed their management with the physician Tile Grader. I have reviewed the Physician Tile Grader's notes and agree with the documented findings and plan of care)
[2017-03-31 13:55] VITALS: BMI 24.8
[2017-03-31] MEDS: IOHEXOL 350 MG/ML 25 ML BOTTLE (ORAL USE) PO PRN ×2 (13:57→14:51)
[2017-03-31] MEDS: SODIUM CHLORIDE 0.9% 1,000 ML IV SCH ×2 (13:58→23:56)
--- NOTE | 2017-03-31 14:16 | P.GSCN ---
History of Present Illness Consult date: 03/30/17 Reason for Consult: Abdominal pain Requesting physician: Db Membreno History of present illness: Patient is a 21-year-old female, patient of Dr. Herr in the outpatient setting, with medical history significant for perisylvian syndrome, benign resected liver tumor, and recent urinary tract infection treated with antibiotics. Patient presented to the emergency department with complaints of right upper quadrant pain of 2 weeks duration. Patient has recently undergone CT of abdomen and pelvis, renal ultrasound, and gallbladder ultrasound which were all unremarkable. Patient describes pain is located under her right ribs radiating into her back and right groin, described as as sharp and constant, associated with nausea without vomiting. Patient reports pain when she is eating. Patient also complains of heartburn. HIDA scan obtained today unremarkable. Admission labs unremarkable. Urinalysis with trace of blood. 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has trouble swallowing -mom stated pt knows what she can and cannot eat.RECENT UTI WAS ON CIPRO.BENIGN Liver tumor(REMOVED AT [facility])),"TAKES BP MED NOT FOR HYPERTENSION BUT FOR NITEMARES",CONSTIPATION-LAST BM Tuesday, PAST SEIZURE DISORDER(BLANK STARE) NO LONGER TAKES MEICATIONS FOR IT.HAS CONTROL IMPLANTED RT ARM. History of Any Multi-Drug Resistant Organisms: None Reported Additional Past Surgical History / Comment(s): wears knee braces (antonio). JAW SX TO MOVE JAW FORWARD 3 INCHES-HAS PLATES AND SCREWS. PEG TUB PLACED CHILD AND REMOVED, tubes in ear as child,colonoscopy. resection of liver for benign tumor 05/19/15 Past Anesthesia/Blood Transfusion Reactions: No Reported Reaction Additional Past Anesthesia/Blood Transfusion Reaction / Comm: pt had a blood transfuion w/ liver sx- no reaction Past Psychological History: Anxiety, Bipolar, Depression Additional Psychological History / Comment(s): PERISYLVAIN SYNDROME. per pt's mom -about a month ago pt attemped to cut her wrist but did'nt break skin. pt sees a counselor and psychiatrist at [facility]. at time of admit pt el any thoughts of wanting to hurt self. has had difficulty sleeping d/t abd pain Smoking Status: Current some day smoker Past Alcohol Use History: Rare Additional Past Alcohol Use History / Comment(s): pt's mom stated pt may have a cig here and there on a weekend. Past Drug Use History: None Reported - Past Family History Mother Family Medical History: No Reported History Medications and Allergies Home Medications Medication Instructions Recorded Confirmed Type Dicyclomine HCl 10 mg PO BID PRN 06/09/16 03/30/17 History LORazepam [Ativan] 1 mg PO BID PRN 01/11/17 03/30/17 History Ziprasidone HCl [Geodon] 40 mg PO BID 01/11/17 03/30/17 History traZODone HCL 300 mg PO HS 01/11/17 03/30/17 History Cyclobenzaprine [Flexeril] 10 mg PO HS 03/24/17 03/30/17 History Fluticasone Nasal [place] [Flonase 2 spr EA NOSTRIL DAILY PRN 03/24/17 03/30/17 History Nasal [place]] Prazosin [Minipress] 1 mg PO HS 03/24/17 03/30/17 History Omeprazole 20 mg PO DAILY 03/28/17 03/30/17 History Allergies Allergy/AdvReac Type Severity Reaction Status Date / Time morphine AdvReac Severe Nausea & Verified 03/30/17 13:18 Vomiting phenobarbital AdvReac pt becomes Verified 03/30/17 13:18 extremely aggressive Surgical - Exam Vital Signs Temp Pulse Resp BP Pulse Ox 99.3 F 100 18 111/74 99 03/30/17 12:46 03/30/17 12:46 03/30/17 12:46 03/30/17 12:46 03/30/17 12:46 GENERAL: Pt awake and alert, well-nourished, and in no acute distress. ENT: Moist mucous membranes. LUNGS: Breath sounds clear to auscultation bilaterally. No wheezes, rales, or rhonchi. HEART: Heart S1, S2, no S3 or S4. Regular rate and rhythm. No murmurs, rubs or gallops. ABDOMEN: Soft, right upper and lower quadrant tenderness, nondistended, normoactive bowel sounds. No guarding, no rebound. NEUROLOGICAL: Pt oriented x 3. Results - Labs 03/31/17 09:16 03/31/17 09:16 Diabetes panel 03/31/17 Range/Units 09:16 Sodium 141 (137-145) mmol/L Potassium 4.0 (3.5-5.1) mmol/L Chloride 107 (98-107) mmol/L Carbon Dioxide 25 (22-30) mmol/L BUN 9 (7-17) mg/dL Creatinine 0.69 (0.52-1.04) mg/dL Glucose 86 (74-99) mg/dL Calcium 9.2 (8.4-10.2) mg/dL Calcium panel 03/31/17 Range/Units 09:16 Calcium 9.2 (8.4-10.2) mg/dL Pituitary panel 03/31/17 Range/Units 09:16 Sodium 141 (137-145) mmol/L Potassium 4.0 (3.5-5.1) mmol/L Chloride 107 (98-107) mmol/L Carbon Dioxide 25 (22-30) mmol/L BUN 9 (7-17) mg/dL Creatinine 0.69 (0.52-1.04) mg/dL Glucose 86 (74-99) mg/dL Calcium 9.2 (8.4-10.2) mg/dL Adrenal panel 03/31/17 Range/Units 09:16 Sodium 141 (137-145) mmol/L Potassium 4.0 (3.5-5.1) mmol/L Chloride 107 (98-107) mmol/L Carbon Dioxide 25 (22-30) mmol/L BUN 9 (7-17) mg/dL Creatinine 0.69 (0.52-1.04) mg/dL Glucose 86 (74-99) mg/dL Calcium 9.2 (8.4-10.2) mg/dL - Imaging Abdominal x-ray: report reviewed (No acute process) Assessment and Plan Plan: Impression: 1. Right-sided abdominal, flank, and right groin pain associated with nausea without vomiting and epigastric pain 2 weeks. HIDA scan unremarkable. 2. History of recent urinary tract infection. 2. History of benign resected liver tumor 2 years ago. Plan: Patient will be scheduled for an EGD tomorrow by Dr. Steele. Patient is currently scheduled for CT of the abdomen and pelvis. Patient will be kept nothing by mouth after midnight. Continue supportive treatment and pain management. Continue follow medical team. The above impression and plan have been discussed and directed by Dr. Steele. Pooja HALL acting as scribe for Dr. Steele.
--- NOTE | 2017-03-31 15:57 | CT ---
EXAMINATION TYPE: CT abdomen pelvis w con DATE OF EXAM: 03/31/2017 3:48 PM COMPARISON: 03/24/2017 HISTORY: Patient complains of right flank pain. CT DLP: 1012 mGycm CONTRAST: CT scan of the abdomen and pelvis is performed with Oral Contrast and with IV Contrast, patient injec fortino with 100 mL of Omnipaque 300. FINDINGS: LUNG BASES-: No visible nodule. No infiltrate. LIVER/GB: No calcified gallstones. No space occupying hepatic lesion. Biliary tree is of normal ca liber. PANCREAS: No inflammation. No distinct mass. SPLEEN: No splenic enlargement. No lesion seen. ADRENALS: No nodule. No thickening. KIDNEYS/BLADDER: No hydronephrosis. No nephrolithiasis. No disctinct renal mass. Urinary bladder g rossly unremarkable. BOWEL: Normal appendix. Normal bowel caliber. No inflammation. Mild hiatal hernia. GENITAL ORGANS: No gross abnormality. LYMPH NODES: No greater than 1cm abdominal or pelvic lymph nodes are appreciated. AORTA: No significant abnormality. OSSEOUS STRUCTURES: No significant abnormality is seen. OTHER: Small fat-containing epigastric ventral hernia. Small fat-containing umbilical hernia. Tubing- like material is seen within the left upper quadrant. Has there been previous gastric banding device which has been removed? IMPRESSION: 1. No acute intraabdominal or intrapelvic process identified. 2. Moderate fecal stasis.
[2017-03-31] MEDS: HEPARIN SODIUM,PORCINE 5,000 UNIT/ML 1 ML VIAL SQ SCH (21:28)
[2017-03-31] MEDS: traZODone HCL 100 MG TAB PO SCH (21:29)
[2017-03-31] MEDS: PRAZOSIN 1 MG CAP PO SCH (21:29)
[2017-04-01] MEDS: HYDROmorphone 1 MG/ML 1 ML SYRINGE IVP PRN ×5 (00:04→15:23)
[2017-04-01 06:52] LABS: Basophils % (A) 0 %; CH 30.2; Eosinophils % (A) 0 %; HDW 2.27; HGB 12.6 gm/dL (11.4-16.0); Luc # (Auto) 0.03; Luc % (Auto) 0; Lymphocytes # (A) 0.9 k/uL (1.0-4.8); Lymphocytes % (A) 10 %; MCH 29.6 pg (25.0-35.0); MCHC 32.2 g/dL (31.0-37.0); MCV 91.8 fL (80.0-100.0); Mean Platelet Volume 9.8; Monocytes # (A) 0.4 k/uL (0-1.0); Monocytes % (A) 4 %; Neutrophils # (A) 8.2 k/uL (1.3-7.7); Neutrophils % (A) 86 %; RBC 4.25 m/uL (3.80-5.40); RDW 12.7 % (11.5-15.5); WBC 9.5 k/uL (3.8-10.6)
[2017-04-01 07:05] LABS: Anion Gap 8 mmol/L; Blood Urea Nitrogen 7 mg/dL (7-17); Calcium 9.3 mg/dL (8.4-10.2); Carbon Dioxide 26 mmol/L (22-30); Chloride 107 mmol/L (98-107); Glucose 111 mg/dL (74-99); Non-African American GFR(MDRD) >60 (>60 ml/min/1.73 sqM); Potassium 4.5 mmol/L (3.5-5.1); Sodium 141 mmol/L (137-145)
[2017-04-01] MEDS: PANTOPRAZOLE 40 MG TABLET PO SCH (07:29)
[2017-04-01] MEDS ORDERED: LACTULOSE 20 GM/30 ML CUP PO ONE (09:23)
[2017-04-01] MEDS: HEPARIN SODIUM,PORCINE 5,000 UNIT/ML 1 ML VIAL SQ SCH ×2 (10:04→20:49)
--- NOTE | 2017-04-01 11:13 | P.PN ---
Subjective This 21-year-old female presented with right-sided flank and abdominal pain. She had a computed tomography scan of the abdomen showing no acute abnormality. Did reveal moderate fecal stasis. She'll be given Colace and lactulose. She was evaluated by surgical service and they're planning for EGD today. HIDA scan normal. Patient is also been having some sinus tachycardia she remains on telemetry. Heart rate has been as high as 146. EKG is quite currently in normal sinus rhythm. Metoprolol 12.5 g twice a day was added patient still complaining of abdominal pain. Nursing is reporting that she is very anxious. Her last bowel movement was Tuesday. Denies any chest pain or shortness of breath. Denies any nausea or vomiting. Denies any difficulty urinating. Objective - Vital Signs Vital signs: Vital Signs Temp 98.0 F 04/01/17 08:20 Pulse 88 04/01/17 08:20 Resp 24 04/01/17 08:20 BP 117/75 04/01/17 08:20 Pulse Ox 99 04/01/17 08:20 Intake & Output 03/31/17 04/01/17 04/01/17 18:59 06:59 18:59 Intake Total 500 300 Balance 500 300 Weight 56.744 kg Intake: Oral 500 300 Other: Voiding Method Toilet # Voids 2 1 1 # Emeses 1 - Exam Head normocephalic Neck supple Lungs clear to auscultation bilaterally no wheezing or crackles Heart regular rate and rhythm S1-S2, no rub or gallop Abdomen is soft nondistended tender along the right CVA right side of her abdomen and groin area. Epigastric tenderness No skin discoloration or bruising. Extremities no edema Neuro alert and orientated to 3 - Labs CBC & Chem 7: 04/01/17 06:38 04/01/17 06:38 Labs: Abnormal Lab Results - Last 24 Hours (Table) 04/01/17 04/01/17 Range/Units 06:38 06:38 Neutrophils # 8.2 H (1.3-7.7) k/uL Lymphocytes # 0.9 L (1.0-4.8) k/uL Glucose 111 H (74-99) mg/dL Assessment and Plan Plan: 1. Right flank and abdominal pain radiating into the right groin. Computed tomography scan of the abdomen from 03/24/2017 shows no evidence of kidney stones and was a negative study. Patient had a normal HIDA scan today and KUB was negative. Recently treated for UTI. Surgical service is following. Colonoscopy in 2014 was normal. Computed tomography scan of the abdomen and pelvis showing moderate fecal stasis. Patient will receive lactulose and Colace. Was seen by surgical service the planning for EGD today 2. Recently treated UTI. 3. History of benign liver tumor that was resected at [facility] about 2 years ago 4. History of perisylvian syndrome 5. History of depression and bipolar 6. Nausea continue Zofran as needed 7. Sinus Tachycardia: EKG shows a normal sinus rhythm. Telemetry was showing evidence of sinus tachycardia. Thyroid Levels will be checked. Also will add metoprolol 12.5 mg twice a day 8. Itching due to the Dilaudid. Benadryl 25 mg by mouth as needed and 1 dose of IV Solu-Medrol been ordered. Appears to have improved GI prophylaxis Protonix and DVT prophylaxis subcu heparin I performed an examination of the patient and discussed their management with the physician Communications Tech. I have reviewed the Physician Communications Tech's notes and agree with the documented findings and plan of care
[2017-04-01] MEDS ORDERED: fentaNYL (PF) 50 MCG/ML 2 ML AMP ONE (11:43)
[2017-04-01] MEDS ORDERED: PROPOFOL 10 MG/ML 20 ML VIAL IV ONE (11:43)
[2017-04-01] MEDS ORDERED: LIDOCAINE 1% INJ 10MG/ML (20 ML MDV) ONE (11:43)
[2017-04-01] MEDS ORDERED: IV FLUID CONTINUATION 1,000 ML IV ONE (11:43)
[2017-04-01] MEDS ORDERED: MIDAZOLAM 2 MG/2 ML VIAL ONE (11:43)
[2017-04-01] MEDS ORDERED: SODIUM CHLORIDE 0.9% 1,000 ML IV ONE (12:00)
--- NOTE | 2017-04-01 12:00 | P.OP ---
Date of Procedure: 04/01/17 Preoperative Diagnosis: Epigastric and right upper quadrant pain Postoperative Diagnosis: Mild antral gastritis No evidence of hiatal hernia Procedure(s) Performed: EGD Anesthesia: MAC Surgeon: Silvano Steele Pathology: other (Antrum) Condition: stable Disposition: PACU Description of Procedure: Patient's placed on the endoscopy table in the lateral position. She received IV sedation. The gastroscope some placed oropharynx and passed into the esophagus and into the stomach. The scope was then placed through the pylorus. The first and second portion of duodenum appeared normal. The scope was then brought back the antrum and there is some mild inflammation seen a biopsies performed. Scope was retroflexed and remainder stomach appeared normal. There was no hiatal hernia. There is known to any ulceration. Scope was then brought back slowly GE junction. This was at 40 cm is. The distal esophagus appeared normal. The proximal esophagus appeared normal. Scope was withdrawn for patient.
[2017-04-01] MEDS: ZIPRASIDONE 40 MG CAP PO SCH ×2 (13:30→17:37)
[2017-04-01] MEDS: DULoxetine HCL 60 MG CAPSULE.DR PO SCH (13:37)
[2017-04-01] MEDS: METOPROLOL TARTRATE 12.5 MG TAB PO SCH ×2 (13:37→21:18)
[2017-04-01] MEDS: hydrOXYzine PAMOATE 25 MG CAP PO SCH (13:41)
[2017-04-01] MEDS: diphenhydrAMINE 25 MG CAP PO PRN (18:08)
[2017-04-01] MEDS: HYDROcodone/APAP 5-325MG 1 EACH TAB PO PRN (19:54)
[2017-04-01] MEDS: traZODone HCL 100 MG TAB PO SCH (20:48)
[2017-04-01] MEDS: LORazepam 1 MG TAB PO PRN (20:49)
[2017-04-01] MEDS: DOCUSATE 100 MG CAP PO SCH (20:50)
[2017-04-01] MEDS: PRAZOSIN 1 MG CAP PO SCH (20:50)
[2017-04-01] MEDS: SODIUM CHLORIDE 0.9% 1,000 ML IV SCH (21:20)
[2017-04-02] MEDS: PANTOPRAZOLE 40 MG TABLET PO SCH (07:37)
[2017-04-02 07:56] LABS: Basophils % (A) 0 %; CH 30.2; Eosinophils # (A) 0.1 k/uL (0-0.7); Eosinophils % (A) 1 %; HCT 34.8 % (34.0-46.0); HDW 2.16; HGB 11.4 gm/dL (11.4-16.0); Luc # (Auto) 0.08; Luc % (Auto) 1; Lymphocytes # (A) 2.5 k/uL (1.0-4.8); Lymphocytes % (A) 29 %; MCH 30.2 pg (25.0-35.0); MCHC 32.9 g/dL (31.0-37.0); MCV 91.7 fL (80.0-100.0); Mean Platelet Volume 10.2; Monocytes # (A) 0.5 k/uL (0-1.0); Monocytes % (A) 6 %; Neutrophils # (A) 5.4 k/uL (1.3-7.7); Neutrophils % (A) 63 %; RBC 3.79 m/uL (3.80-5.40); RDW 12.9 % (11.5-15.5); WBC 8.5 k/uL (3.8-10.6); WBC (Perox) 8.12
[2017-04-02 08:09] LABS: ALT 24 U/L (9-52); AST 19 U/L (14-36); Alkaline Phosphatase 63 U/L (38-126); Anion Gap 5 mmol/L; Blood Urea Nitrogen 7 mg/dL (7-17); Calcium 8.9 mg/dL (8.4-10.2); Carbon Dioxide 29 mmol/L (22-30); Chloride 106 mmol/L (98-107); Glucose 78 mg/dL (74-99); Non-African American GFR(MDRD) >60 (>60 ml/min/1.73 sqM); Potassium 4.1 mmol/L (3.5-5.1); Sodium 140 mmol/L (137-145); Total Bilirubin 0.3 mg/dL (0.2-1.3); Total Protein 5.9 g/dL (6.3-8.2)
[2017-04-02] MEDS: HEPARIN SODIUM,PORCINE 5,000 UNIT/ML 1 ML VIAL SQ SCH ×2 (08:25→20:33)
[2017-04-02] MEDS: DULoxetine HCL 60 MG CAPSULE.DR PO SCH (08:27)
[2017-04-02] MEDS: DOCUSATE 100 MG CAP PO SCH ×2 (08:27→20:31)
[2017-04-02] MEDS: hydrOXYzine PAMOATE 25 MG CAP PO SCH (08:28)
[2017-04-02] MEDS: METOPROLOL TARTRATE 12.5 MG TAB PO SCH ×2 (08:28→20:33)
[2017-04-02] MEDS: ZIPRASIDONE 40 MG CAP PO SCH ×2 (09:23→18:12)
[2017-04-02] MEDS: traMADol 50 MG TAB PO PRN ×2 (09:30→17:08)
--- NOTE | 2017-04-02 10:10 | P.PN ---
Subjective No events overnight. Patient continues to have some abdominal pain. She is tolerating liquid diet without difficulty. Objective - Vital Signs Vital signs: Vital Signs Temp 97 F L 04/02/17 08:19 Pulse 108 H 04/02/17 08:19 Resp 18 04/02/17 08:19 BP 115/76 04/02/17 08:19 Pulse Ox 96 04/02/17 08:19 Intake & Output 04/01/17 04/02/17 04/02/17 18:59 06:59 18:59 Intake Total 50 Balance 50 Intake: IV 50 Other: Voiding Method Toilet # Voids 1 1 1 - Exam General: The patient is awake and alert, in no distress Eye: there is normal conjunctiva bilaterally. Neck: The neck is supple, there is no JVD. Cardiovascular: Normal S1-S2, no S3-S4, no murmurs. Respiratory: Lungs clear to auscultation bilaterally Gastrointestinal: Abdomen is soft, there is mild tenderness to palpation Musculoskeletal: There is no pedal edema. Neurological:. Speech is normal. Skin: Skin is warm and dry - Labs CBC & Chem 7: 04/02/17 06:46 04/02/17 06:46 Labs: Abnormal Lab Results - Last 24 Hours (Table) 04/01/17 04/02/17 04/02/17 Range/Units 06:38 06:46 06:46 RBC 3.79 L (3.80-5.40) m/uL Total Protein 5.9 L (6.3-8.2) g/dL Albumin 3.3 L (3.5-5.0) g/dL TSH 0.435 L (0.465-4.680) mIU/L Assessment and Plan Plan: 1. Right flank and abdominal pain radiating into the right groin. Computed tomography scan of the abdomen from 03/24/2017 shows no evidence of kidney stones and was a negative study. Patient had a normal HIDA scan today and KUB was negative. Recently treated for UTI. Surgical service is following. Colonoscopy in 2014 was normal. Computed tomography scan of the abdomen and pelvis showing moderate fecal stasis. Patient underwent an EGD during this admission showing mild antral gastritis 2. Recently treated UTI. 3. History of benign liver tumor that was resected at [facility] about 2 years ago 4. History of perisylvian syndrome 5. History of depression and bipolar 6. Nausea continue Zofran as needed GI prophylaxis Protonix and DVT prophylaxis subcu heparin
[2017-04-02] MEDS ORDERED: BISACODYL 10 MG SUPP RECTAL STA (10:30)
--- NOTE | 2017-04-02 10:57 | P.PN ---
Progress Note - Text Patient continues to complain of the upper abdominal pain. EGD was unremarkable. The entire workup was reviewed. No evidence of any significant abdominal pathology. A diet. Some constipation. He is passing flatus. On examination the patient is awake alert in no acute distress. Temperature is normal. Vitals are good. Abdomen is soft with very mild epigastric tenderness. No guarding or rebound. Quit depressible. Has a tenderness also was brought to the right upper quadrant. No organomegaly. Impression.'s of any significant intra-abdominal pathology to explain her pain or discomfort. Recommendation May the try Dulcolax suppository as needed. May be discharged from a surgical standpoint.
[2017-04-02] MEDS: ONDANSETRON ODT 4 MG TAB PO PRN (14:39)
[2017-04-02] MEDS: HYDROcodone/APAP 5-325MG 1 EACH TAB PO PRN (14:41)
[2017-04-02] MEDS: ACETAMINOPHEN TAB 325 MG TAB PO PRN (14:43)
[2017-04-02] MEDS: traZODone HCL 100 MG TAB PO SCH (20:31)
[2017-04-02] MEDS: PRAZOSIN 1 MG CAP PO SCH (20:32)
[2017-04-02] MEDS: LORazepam 1 MG TAB PO PRN (20:32)
[2017-04-03 07:36] LABS: Basophils # (A) 0.1 k/uL (0-0.2); Basophils % (A) 1 %; CH 30.1; Eosinophils # (A) 0.1 k/uL (0-0.7); Eosinophils % (A) 2 %; HCT 36.4 % (34.0-46.0); Luc # (Auto) 0.12; Luc % (Auto) 2; Lymphocytes # (A) 2.7 k/uL (1.0-4.8); Lymphocytes % (A) 46 %; MCHC 32.9 g/dL (31.0-37.0); MCV 91.3 fL (80.0-100.0); Mean Platelet Volume 9.8; Monocytes # (A) 0.6 k/uL (0-1.0); Monocytes % (A) 9 %; Neutrophils # (A) 2.4 k/uL (1.3-7.7); Neutrophils % (A) 40 %; RBC 3.98 m/uL (3.80-5.40); RDW 12.7 % (11.5-15.5); WBC 5.8 k/uL (3.8-10.6); WBC (Perox) 5.86
[2017-04-03 07:51] LABS: ALT 22 U/L (9-52); AST 16 U/L (14-36); Alkaline Phosphatase 61 U/L (38-126); Anion Gap 8 mmol/L; Blood Urea Nitrogen 15 mg/dL (7-17); Calcium 9.2 mg/dL (8.4-10.2); Carbon Dioxide 32 mmol/L (22-30); Chloride 101 mmol/L (98-107); Glucose 85 mg/dL (74-99); Non-African American GFR(MDRD) >60 (>60 ml/min/1.73 sqM); Potassium 4.2 mmol/L (3.5-5.1); Sodium 141 mmol/L (137-145); Total Bilirubin 0.3 mg/dL (0.2-1.3); Total Protein 6.1 g/dL (6.3-8.2)
[2017-04-03] MEDS: PANTOPRAZOLE 40 MG TABLET PO SCH (07:56)
[2017-04-03] MEDS: ZIPRASIDONE 40 MG CAP PO SCH (07:56)
[2017-04-03] MEDS: DOCUSATE 100 MG CAP PO SCH (08:56)
[2017-04-03] MEDS: DULoxetine HCL 60 MG CAPSULE.DR PO SCH (08:57)
[2017-04-03] MEDS: HEPARIN SODIUM,PORCINE 5,000 UNIT/ML 1 ML VIAL SQ SCH (08:57)
[2017-04-03] MEDS: METOPROLOL TARTRATE 12.5 MG TAB PO SCH (08:58)
[2017-04-03] MEDS: hydrOXYzine PAMOATE 25 MG CAP PO SCH (09:01)
[2017-04-03] MEDS: ACETAMINOPHEN TAB 325 MG TAB PO PRN (09:16)
[2017-04-03 09:28] VITALS: BP 93/51; PULSE 104; RESP 19; TEMP 98.1
[2017-04-03] MEDS ORDERED: IBUPROFEN 400 MG TAB PO STA (13:23)
--- NOTE | 2017-04-03 14:00 | P.DS ---
Providers Date of admission: 03/30/17 15:54 Expected date of discharge: 04/03/17 Attending physician: Ashlyn Petersen Primary care physician: Radha Herr [facility] Course: 1. Right flank and abdominal pain radiating into the right groin. Computed tomography scan of the abdomen from 03/24/2017 shows no evidence of kidney stones and was a negative study. Patient had a normal HIDA scan today and KUB was negative. Recently treated for UTI. Seen and evaluated by general surgery. Colonoscopy in 2014 was normal. Computed tomography scan of the abdomen and pelvis showing moderate fecal stasis. EGD showed mild antral gastritis. Patient was cleared for discharge home. 2. Recently treated UTI. 3. History of benign liver tumor that was resected at [facility] about 2 years ago 4. History of perisylvian syndrome 5. History of depression and bipolar Patient Condition at Discharge: Fair Plan - Discharge Summary Discharge Medication List Dicyclomine HCl 10 mg PO BID PRN 06/09/16 [History] DULoxetine HCL [Cymbalta] 60 mg PO DAILY 30 Days 06/14/16 [Rx] hydrOXYzine PAMOATE [Vistaril] 25 mg PO DAILY 30 Days 06/14/16 [Rx] LORazepam [Ativan] 1 mg PO BID PRN 01/11/17 [History] Ziprasidone HCl [Geodon] 40 mg PO BID 01/11/17 [History] traZODone HCL 300 mg PO HS 01/11/17 [History] Ciprofloxacin HCl [Cipro] 500 mg PO Q12HR #14 tablet 03/24/17 [Rx] Cyclobenzaprine [Flexeril] 10 mg PO HS 03/24/17 [History] Fluticasone Nasal [place] [Flonase Nasal [place]] 2 spr EA NOSTRIL DAILY PRN [History] Ondansetron Odt [Zofran Odt] 4 mg PO Q8HR PRN #12 tab 03/24/17 [Rx] Prazosin [Minipress] 1 mg PO HS 03/24/17 [History] HYDROcodone/APAP 5-325MG [[place] 5-325] 1 tab PO Q6HR PRN #20 tab 03/28/17 [Rx] Omeprazole 20 mg PO DAILY 03/28/17 [History] Follow up Appointment(s)/Referral(s): Radha Herr DO [Primary Care Provider] - 1-2 days Activity/Diet/Wound Care/Special Instructions: Last received Tylenol 650mg at 0900 Last received Motrin 400mg at 1:30 DIet as tolerated at home blander foods . drink fluids. walk.
== END 2017-04-03 14:30 | disposition home or self-care (01) ==
LOC: EC 12:41 → 6PED 15:54
PROVIDERS: ADMIT Internal Medicine; ATTEND Internal Medicine
DX: R10.31 Right lower quadrant pain (principal); K29.60 Other gastritis without bleeding; R10.11 Right upper quadrant pain; R10.13 Epigastric pain; R11.0 Nausea; K59.00 Constipation, unspecified; L29.9 Pruritus, unspecified; T40.2X5A Adverse effect of other opioids, initial encounter; F41.9 Anxiety disorder, unspecified; F31.9 Bipolar disorder, unspecified; R00.0 Tachycardia, unspecified; F51.5 Nightmare disorder; Z79.3 Long term (current) use of hormonal contraceptives; Z79.899 Other long term (current) drug therapy; Z88.5 Allergy status to narcotic agent; F17.210 Nicotine dependence, cigarettes, uncomplicated; Z86.018 Personal history of other benign neoplasm; Z87.440 Personal history of urinary (tract) infections; Q07.9 Congenital malformation of nervous system, unspecified
CPT/HCPCS: 96372 ×2; 96375 ×2; 96376 ×3; 96374; 99285; 36415; 93005; 84439; 88305; 80053 ×3; 80048 ×2; 84443; 82150; 83690; 83735; 85025 ×5; 81001; 88342; 81025; 74000; 74177; 78226; 43239; G0378 ×5; A9537; J2250; J0500; J1644 ×4; J2930; J2001; J3010; J1885; J1170 ×3; Q9967; J2704

== ENCOUNTER 2017-04-07 23:53 | Emergency (ER) | payer OTHER ==
[2017-04-08 00:15] VITALS: BP 117/76; PULSE 106; RESP 16; TEMP 98.6
[2017-04-08] MEDS ORDERED: MAG HYDROX/AL HYDROX/SIMETH 30 ML, HYOSCYAMINE ELIXIR 10 ML, CIMETIDINE HCL 300 MG, LID... PO STA ×4 (00:53)
--- NOTE | 2017-04-08 01:03 | ED ---
Abdominal Pain HPI - General Chief Complaint: Abdominal Pain Stated Complaint: Back/Abdominal Pain Time Seen by Provider: 04/08/17 00:27 Source: patient, RN notes reviewed Mode of arrival: ambulatory Limitations: no limitations - History of Present Illness Initial Comments: 22-year-old female presents to the emergency department with a chief complaint of abdominal pain. Patient's abdominal pain started back in the beginning of the month. Patient has been admitted she's undergone a scope and she was diagnosed with gastritis. She was started on medication for home and discharged on Tuesday. They state medication does not seem to be helping much with the patient's discomfort. Patient states eating seems to make the pain worse. Patient states that pain that she presented with initially. Family states they were concerned due to the continued pain and wondering if there something else that we can give her to help. There is no change in her symptoms compared to her admission and they're simply here for pain control. Patient denies any recent fever, chills, shortness of breath, chest pain, back pain, nausea vomiting, numbness or tingling, dysuria or hematuria, constipation or diarrhea, headaches or visual changes, or any other current symptoms. - Related Data Home Medications Medication Instructions Recorded Confirmed Dicyclomine HCl 10 mg PO BID PRN 06/09/16 03/30/17 LORazepam [Ativan] 1 mg PO BID PRN 01/11/17 03/30/17 Ziprasidone HCl [Geodon] 40 mg PO BID 01/11/17 03/30/17 traZODone HCL 300 mg PO HS 01/11/17 03/30/17 Cyclobenzaprine [Flexeril] 10 mg PO HS 03/24/17 03/30/17 Fluticasone Nasal [place] [Flonase 2 spr EA NOSTRIL DAILY PRN 03/24/17 03/30/[address] [place]] Prazosin [Minipress] 1 mg PO HS 03/24/17 03/30/17 Omeprazole 20 mg PO DAILY 03/28/17 03/30/17 Previous Rx's Medication Instructions Recorded DULoxetine HCL [Cymbalta] 60 mg PO DAILY 30 Days 06/14/16 hydrOXYzine PAMOATE [Vistaril] 25 mg PO DAILY 30 Days 06/14/16 Ciprofloxacin HCl [Cipro] 500 mg PO Q12HR #14 tablet 03/24/17 Ondansetron Odt [Zofran Odt] 4 mg PO Q8HR PRN #12 tab 03/24/17 HYDROcodone/APAP 5-325MG [[place] 1 tab PO Q6HR PRN #20 tab 03/28/17 5-325] Allergies Allergy/AdvReac Type Severity Reaction Status Date / Time morphine AdvReac Severe Nausea & Verified 03/30/17 13:18 Vomiting phenobarbital AdvReac pt becomes Verified 03/30/17 13:18 extremely aggressive Review of Systems ROS Statement: Those systems with pertinent positive or pertinent negative responses have been documented in the HPI. ROS Other: All systems not noted in ROS Statement are negative. 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has trouble swallowing -mom stated pt knows what she can and cannot eat.RECENT UTI WAS ON CIPRO.BENIGN Liver tumor(REMOVED AT [facility])),"TAKES BP MED NOT FOR HYPERTENSION BUT FOR NITEMARES",CONSTIPATION-LAST BM Tuesday, PAST SEIZURE DISORDER(BLANK STARE) NO LONGER TAKES MEICATIONS FOR IT.HAS CONTROL IMPLANTED RT ARM. History of Any Multi-Drug Resistant Organisms: None Reported Additional Past Surgical History / Comment(s): wears knee braces (antonio). JAW SX TO MOVE JAW FORWARD 3 INCHES-HAS PLATES AND SCREWS. PEG TUB PLACED CHILD AND REMOVED, tubes in ear as child,colonoscopy. resection of liver for benign tumor 05/19/15 Past Anesthesia/Blood Transfusion Reactions: No Reported Reaction Additional Past Anesthesia/Blood Transfusion Reaction / Comment(s): pt had a blood transfuion w/ liver sx- no reaction Past Psychological History: Anxiety, Bipolar, Depression Additional Psychological History / Comment(s): PERISYLVAIN SYNDROME. per pt's mom -about a month ago pt attemped to cut her wrist but did'nt break skin. pt sees a counselor and psychiatrist at [facility]. at time of admit pt el any thoughts of wanting to hurt self. has had difficulty sleeping d/t abd pain Smoking Status: Current some day smoker Past Alcohol Use History: Rare Additional Past Alcohol Use History / Comment(s): pt's mom stated pt may have a cig here and there on a weekend. Past Drug Use History: None Reported - Past Family History Mother Family Medical History: No Reported History General Exam Limitations: no limitations General appearance: alert, in no apparent distress Head exam: Present: atraumatic, normocephalic, normal inspection Respiratory exam: Present: normal lung sounds bilaterally. Absent: respiratory distress, wheezes, rales, rhonchi, stridor Cardiovascular Exam: Present: regular rate, normal rhythm, normal heart sounds. Absent: systolic murmur, diastolic murmur, rubs, gallop, clicks GI/Abdominal exam: Present: soft, normal bowel sounds. Absent: distended, tenderness, guarding, rebound, rigid Neurological exam: Present: alert, oriented X3 Psychiatric exam: Present: normal affect, normal mood Skin exam: Present: warm, dry, intact, normal color. Absent: rash Course Vital Signs 04/08/17 00:10 Temperature 98.6 F Pulse Rate 106 H Respiratory 16 Rate Blood Pressure 117/76 O2 Sat by Pulse 100 Oximetry Medical Decision Making - Medical Decision Making 22-year-old female presents to the emergency department with a chief complaint of abdominal pain. Patient has been under an EGD recently that it diagnosed with gastritis. This time we give the patient GI cocktail an x-ray shows no acute findings. At this time the patient's x-ray is reviewed. At this time or suspicious with ileus post obstruction patient has no nausea vomiting has tolerated oral and has been passing gas and had bowel movement yesterday. This time we discussed using milk of Magnesia for home to help with bowel movements due to the patient's abdominal pain mostly caused by constipation. Patient's symptoms improved with GI cocktail. We discussed close follow-up with GI Dr. david coe. We discussed increasing fluids in the diet. Patient states she understood all questions were answered. She will be discharged. - Radiology Data Radiology results: report reviewed, image reviewed Disposition Clinical Impression: Constipation, Gastritis Disposition: HOME SELF-CARE Condition: Stable Instructions: Constipation (ED) Additional Instructions: Please use medication as discussed. Please follow up with family doctor if symptoms have not improved over the next two days. Please return to the emergency room if your symptoms increase or worsen or for any other concerns. Referrals: Radha Herr DO [Primary Care Provider] - 1-2 days Time of Disposition: 01:41
--- NOTE | 2017-04-08 01:32 | XR ---
EXAM: XR Abdomen Complete, 2 or More Views CLINICAL HISTORY: Reason: Pain TECHNIQUE: Frontal view of the abdomen/pelvis with upright view of the abdomen. COMPARISON: No relevant prior studies available. FINDINGS: Intraperitoneal space: No free air is seen. Gastrointestinal tract: Mildly prominent colon with moderate amount of stool present. There are a few air-filled borderline prominent small bowel loops. There is a relative paucity of air and stool distally within the rectum. Bones/joints: 13-14 mm radiodense focus overlies the mid to lower thoracic spine as included on the upright view, of uncertain location. Mild leftward curvature of the thoracolumbar spine. IMPRESSION: 1. Moderate amount of colonic stool with mildly prominent colon and few borderline prominent small bowel loops. This may be on the basis of a generalized ileus although the possibility of distal obstruction is not entirely excluded. The findings could be correlated and followed clinically to guide further follow-up as clinically indicated. 2. Small metallic density overlying the mid to lower thoracic spine on one of 2 views, of uncertain location (i.e. internal or external to the patient).
== END 2017-04-08 01:53 | disposition home or self-care (01) ==
LOC: EC 23:53
DX: K59.00 Constipation, unspecified (principal); K29.70 Gastritis, unspecified, without bleeding; F06.8 Other specified mental disorders due to known physiological condition; F31.9 Bipolar disorder, unspecified; F41.9 Anxiety disorder, unspecified; F17.210 Nicotine dependence, cigarettes, uncomplicated; Z79.899 Other long term (current) drug therapy; Z88.5 Allergy status to narcotic agent; Z88.8 Allergy status to other drugs, medicaments and biological substances
CPT/HCPCS: 74020; 99283

== ENCOUNTER 2017-07-15 19:40 | Emergency (ER) | payer OTHER ==
--- NOTE | 2017-07-15 20:50 | ED ---
General Adult HPI - General Chief complaint: Eye Problems Stated complaint: Lt Eye Pain Time Seen by Provider: 07/15/17 19:50 Source: patient, EMS, RN notes reviewed, old records reviewed Mode of arrival: EMS Limitations: no limitations - History of Present Illness Initial comments: If complaint history of present illness is a 22-year-old female here in emergency room because of discomfort and blurry vision to her left eye. This has been ongoing for for several months. Has seen her neurologist as arranged for a CAT scan to be done in several days. Patient reports she takes Tylenol and ibuprofen without relief of discomfort. No injury. Ocular pressure 19. - Related Data Home Medications Medication Instructions Recorded Confirmed LORazepam [Ativan] 1 mg PO BID PRN 01/11/17 07/15/17 Ziprasidone HCl [Geodon] 40 mg PO BID 01/11/17 07/15/17 traZODone HCL 300 mg PO HS 01/11/17 07/15/17 Cyclobenzaprine [Flexeril] 5 mg PO BID 03/24/17 07/15/17 Prazosin [Minipress] 1 mg PO HS 03/24/17 07/15/17 Cyclobenzaprine [Flexeril] 10 mg PO HS 07/15/17 07/15/17 Etodolac [Lodine] 400 mg PO BID 07/15/17 07/15/17 Meloxicam [Mobic] 7.5 mg PO DAILY PRN 07/15/17 07/15/17 Previous Rx's Medication Instructions Recorded DULoxetine HCL [Cymbalta] 60 mg PO DAILY 30 Days 06/14/16 hydrOXYzine PAMOATE [Vistaril] 25 mg PO DAILY 30 Days 06/14/16 Ibuprofen [Motrin] 600 mg PO Q6HR PRN #20 tab 07/15/17 Allergies Allergy/AdvReac Type Severity Reaction Status Date / Time morphine AdvReac Severe Nausea & Verified 07/15/17 19:45 Vomiting phenobarbital AdvReac pt becomes Verified 07/15/17 19:45 extremely aggressive Review of Systems ROS Statement: Those systems with pertinent positive or pertinent negative responses have been documented in the HPI. Review of systems, no headache, mildly blurred vision left eye. No injury. discomfort with mild palpation around the eye. No redness no swelling no evidence of injury. Sclera normal. Otherwise no chest pain shows breath GI/ problems also systems reviewed. Past medical problems significant for perisylvian syndrome or disease. Being followed by Dr. parsons, CAT scan to be done within several days. ROS Other: All systems not noted in ROS Statement are negative. 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has trouble swallowing -mom stated pt knows what she can and cannot eat.RECENT UTI WAS ON CIPRO.BENIGN Liver tumor(REMOVED AT [facility])),"TAKES BP MED NOT FOR HYPERTENSION BUT FOR NITEMARES",CONSTIPATION-LAST BM Tuesday, PAST SEIZURE DISORDER(BLANK STARE) NO LONGER TAKES MEICATIONS FOR IT.HAS CONTROL IMPLANTED RT ARM. History of Any Multi-Drug Resistant Organisms: None Reported Additional Past Surgical History / Comment(s): wears knee braces (antonio). JAW SX TO MOVE JAW FORWARD 3 INCHES-HAS PLATES AND SCREWS. PEG TUB PLACED CHILD AND REMOVED, tubes in ear as child,colonoscopy. resection of liver for benign tumor 05/19/15 Past Anesthesia/Blood Transfusion Reactions: No Reported Reaction Additional Past Anesthesia/Blood Transfusion Reaction / Comment(s): pt had a blood transfuion w/ liver sx- no reaction Past Psychological History: Anxiety, Bipolar, Depression Smoking Status: Current some day smoker Past Alcohol Use History: None Reported Past Drug Use History: None Reported - Past Family History Mother Family Medical History: No Reported History General Exam - General Exam Comments Initial Comments: General: The patient is awake and alert, in no distress, and does not appear acutely ill. Finds discomfort and slightly blurred vision to her left eye. Vital signs temperature 97.0 pulse 70 respiratory 16 pulse ox 99% room air blood pressure 124/73 Eye: Pupils are equal, round and reactive to light, extra-ocular movements are intact ; there is normal conjunctiva bilaterally. No signs of icterus. Just a complaint of blurred vision. Able to count fingers at 6 feet. No diplopia. Eye pressure 19. Ears, nose, mouth and throat: There are moist mucous membranes and no oral lesions. Patient has surgery on her jaw years ago. Neck: The neck is supple, there is no tenderness or JVD. Cardiovascular: There is a regular rate and rhythm. No murmur, rub or gallop is appreciated. Respiratory: Lungs are clear to auscultation, respirations are non-labored, breath sounds are equal. No wheezes, stridor, rales, or rhonchi. Gastrointestinal: Soft, non-distended, non-tender abdomen without masses or organomegaly noted. There is no rebound or guarding present. No CVA tenderness. Bowel sounds are unremarkable. Back: There is no tenderness to palpation in the midline. There is no obvious deformity. No rashes noted. Musculoskeletal: Normal ROM, no tenderness, There is no pedal edema. There is no calf tenderness or swelling. Sensation intact. Pulses equal bilaterally 2+. Neurological: No new or change in her neurological status. Skin: Skin is warm and dry and no rashes or lesions are noted. Psychiatric: History of depression no complaint of depression. Limitations: no limitations Course Vital Signs 07/15/17 19:41 Temperature 97.0 F L Pulse Rate 70 Respiratory 16 Rate Blood Pressure 124/73 O2 Sat by Pulse 99 Oximetry Medical Decision Making - Medical Decision Making Patient is following up with her neurologist concerning this same problem. CAT scan has been ordered. Or problems but several months long without significant changes. She came in tonight because the Tylenol or ibuprofen she took didn't help. There is no evidence of periorbital cellulitis, no evidence of any globe damage. Cornea examined with ophthalmoscope is not show any irregularity. Pupils equal reactive to light. Disposition Clinical Impression: Blurred vision, left eye Disposition: HOME SELF-CARE Condition: Fair Additional Instructions: Take ibuprofen 600 mg with food every 6 hours for discomfort. Follow-up with your neurologist and get the CAT scan as directed. Also follow-up with ophthalmology as you discussed with your family doctor. Prescriptions: Ibuprofen [Motrin] 600 mg PO Q6HR PRN #20 tab PRN Reason: Pain Referrals: Radha Herr DO [Primary Care Provider] - 1-2 days Time of Disposition: 20:51
[2017-07-15 21:01] VITALS: BP 126/73; PULSE 90; RESP 18; TEMP 98.5
== END 2017-07-15 21:29 | disposition home or self-care (01) ==
LOC: EC 19:40
DX: H53.8 Other visual disturbances (principal); F31.9 Bipolar disorder, unspecified; F41.9 Anxiety disorder, unspecified; F17.200 Nicotine dependence, unspecified, uncomplicated; Z79.1 Long term (current) use of non-steroidal anti-inflammatories (NSAID); Z88.5 Allergy status to narcotic agent; Z88.8 Allergy status to other drugs, medicaments and biological substances
CPT/HCPCS: 99283

== ENCOUNTER → 2017-07-19 | Outpatient (CLI) | payer OTHER ==
--- NOTE | 2017-07-19 17:01 | CT ---
EXAMINATION TYPE: CT brain wo con DATE OF EXAM: 07/19/2017 COMPARISON: 04/09/2014 HISTORY: Left eye pain x [address] DLP: 996 mGycm. Automated Exposure Control for Dose Reduction was Utilized. TECHNIQUE: CT scan of the head is performed without contrast. FINDINGS: There are a few punctate 1 to 2 mm calcifications at the santamaria-white matter junction left ce rebral hemisphere. There is no mass effect nor midline shift. There is no sign of intracranial hemorr miladis. The calvarium is intact.. IMPRESSION: Punctate tiny calcifications on the left side could relate to old infection. This is stab le compared to old CT scan. No acute intracranial abnormality. There is no evidence of an orbital mas s..
--- NOTE | 2017-07-19 17:07 | CT ---
EXAMINATION TYPE: CT lumbar spine wo con DATE OF EXAM: 07/19/2017 4:54 PM COMPARISON: NONE HISTORY: Low back pain. CT DLP: 886 mGycm Automated exposure control for dose reduction was used. Unenhanced CT of the lumbar spine was performed. Bone and soft tissue window settings are submitted as well as coronal and sagittal reconstructions. Lumbar vertebra have normal spacing and alignment. Posterior elements are intact. Facet joints appear normal. There is no compression fracture. There is no lumbar paraspinal mass. Sacroiliac joints appe ar normal. I see no bony destructive process. There are some minimal posterior disc bulges at L2-3 L4 -5 L5-S1. There is developmentally adequate spinal canal. There is no spinal stenosis. Neural foramin a are widely patent. IMPRESSION: Minimal disc bulging. No evidence of spinal stenosis. No fracture.
== END | disposition home or self-care (01) ==
LOC: RADCTMAIN 16:20
PROVIDERS: ATTEND Psychiatry & Neurology Neurology
DX: M51.27 Other intervertebral disc displacement, lumbosacral region (principal); R90.89 Other abnormal findings on diagnostic imaging of central nervous system; R51 Headache; Z88.5 Allergy status to narcotic agent; Z88.8 Allergy status to other drugs, medicaments and biological substances
CPT/HCPCS: 70450; 72131

== ENCOUNTER → 2017-08-04 | Outpatient (CLI) | payer OTHER ==
--- NOTE | 2017-08-04 13:16 | CT ---
EXAMINATION TYPE: CT orbits wo/w con DATE OF EXAM: 08/04/2017 COMPARISON: NONE HISTORY: Visual disturbance, Migraine CT DLP: 572 mGycm Automated exposure control for dose reduction was used. CONTRAST: Performed without and with IV Contrast, patient injected with 100 ml mL of Omnipaque 300. FINDINGS: The globes are symmetric bilaterally. There is no evidence for intra or extraconal mass lesion. The e xtraocular musculature appear to be symmetric without evidence for abnormal thickening. There is no e vidence for proptosis. Optic nerves are symmetric. No inflammatory process or enhancing mass lesion i dentified. Lacrimal glands are also symmetric. Paranasal sinuses are well-aerated. IMPRESSION: NO SIGNIFICANT ABNORMALITY TO ACCOUNT FOR THE PATIENT'S SYMPTOMS.
== END | disposition home or self-care (01) ==
LOC: RADCTMAIN 12:15
PROVIDERS: ATTEND Ophthalmology
DX: H53.15 Visual distortions of shape and size (principal); G43.009 Migraine without aura, not intractable, without status migrainosus
CPT/HCPCS: 70482; Q9967

== ENCOUNTER 2017-09-15 10:31 | Day surgery (SDC) | payer OTHER ==
[2017-09-14 14:28] VITALS: BMI 21.6
[~2017-09-15 10:31] MED LIST: LACTATED RINGERS 1,000 ML IV SCH; LIDOCAINE 1% 20 ML VIAL (10MG/ML) FOR IV START INTRADERMA PRN
[2017-09-15 11:06] VITALS: RESP 16; TEMP 99
[2017-09-15] MEDS ORDERED: PROPOFOL 10 MG/ML 20 ML VIAL IV ONE (12:06)
--- NOTE | 2017-09-15 12:56 | P.PCN ---
Date of Procedure: 09/15/17 Procedure(s) Performed: Procedures: 1. Esophagogastroduodenoscopy and biopsy. 2. Total colonoscopy. Preoperative diagnosis: Abdominal pain, nausea and vomiting. Postoperative diagnosis: 1. Mild antral gastritis. 2. Poor colon preparation, but no obvious abnormalities in the colon or terminal ileum. Preparation: HalfLytely prep. Sedation: Was provided by anesthesia. Brief clinical history: The patient is a 22-year-old female with perisylvian syndrome who was evaluated earlier this year in the office regarding abdominal pains. Imaging studies in February and in March were not revealing. Had an upper endoscopy around that time that showed gastritis. The patient had resection of a benign tumor of her liver in the past and her mother contacted the surgical team at [facility] because of her persistent symptoms who advised that we complete her workup prior to her coming over for further evaluation at the surgery clinic. I saw her in follow-up earlier this month. Initially grecia was working for her pain but stopped working 6 weeks or so ago. Was having soft stools but no diarrhea. Procedure: With the patient on her left lateral decubitus position and after informed consent and adequate sedation, I passed the Olympus-GIF 160 video upper endoscope through the cricopharyngeus down the esophagus. GE junction was around 36 cm from the incisors and there was no definite hiatal hernia. The esophagus did not show any erosions, ulcers, strictures or Serrano's esophagus. The endoscope was then passed into the stomach which was insufflated with air and inspected in detail including the retroflex view in the cardia. There was some mottling and erythema in the antrum but no ulcers or erosions. Pyloric channel, duodenal bulb, post bulbar area and descending duodenum appeared within normal limits. Because of her symptoms, I obtained biopsies from the duodenum, antrum and esophagus then the endoscope was withdrawn. Then I proceeded to do colonoscopy. Perianal area did not show any fissures or fistulas. There were no masses felt on digital rectal examination. The Olympus CFQ 160L video colonoscope was then inserted in the rectum and the usual fashion and advanced to the cecum. I intubated the ileocecal valve and examined the terminal ileum. The preparation was poor, however, there was no obvious abnormalities or blockage. I tried to clean the bowel further as I was withdrawing the endoscope using the cleansing system that attaches to the endoscope. The mucosa where visualized appeared healthy. No polyps or other abnormalities were noted. The patient tolerated the procedure well. Plan: The patient and her mom were reassured. Will continue symptomatic treatment and make further plans based on her course and biopsy results.
[2017-09-15 13:29] VITALS: BP 129/97; PULSE 83
[2017-09-15] MEDS ORDERED: PROMETHAZINE INJ 25 MG/ML 1 ML VIAL IVPB ONE ×2 (14:10→14:15)
== END 2017-09-15 14:44 | disposition home or self-care (01) ==
LOC: ORWHC2ENDO 10:31
DX: K20.9 Esophagitis, unspecified (principal); R10.9 Unspecified abdominal pain; R11.2 Nausea with vomiting, unspecified; F17.200 Nicotine dependence, unspecified, uncomplicated; F79 Unspecified intellectual disabilities; Z79.899 Other long term (current) drug therapy; Z88.5 Allergy status to narcotic agent; Z88.8 Allergy status to other drugs, medicaments and biological substances
CPT/HCPCS: 81025; 88305; 88342; 45378; 43239; J2550; J2704

== ENCOUNTER → 2017-11-08 | Outpatient (CLI) | payer OTHER ==
[2017-11-08 12:44] LABS: Basophils # (A) 0.1 k/uL (0-0.2); Basophils % (A) 1 %; CH 29.7; CHCM 31.6; Eosinophils # (A) 0.1 k/uL (0-0.7); Eosinophils % (A) 1 %; HCT 41.9 % (34.0-46.0); HDW 1.94; HGB 13.2 gm/dL (11.4-16.0); Luc # (Auto) 0.07; Luc % (Auto) 1; Lymphocytes # (A) 1.3 k/uL (1.0-4.8); Lymphocytes % (A) 26 %; MCH 29.6 pg (25.0-35.0); MCHC 31.4 g/dL (31.0-37.0); MCV 94.3 fL (80.0-100.0); Mean Platelet Volume 9.4; Monocytes # (A) 0.3 k/uL (0-1.0); Monocytes % (A) 6 %; Neutrophils # (A) 3.3 k/uL (1.3-7.7); Neutrophils % (A) 65 %; RBC 4.45 m/uL (3.80-5.40); RDW 13.2 % (11.5-15.5); WBC 5.1 k/uL (3.8-10.6); WBC (Perox) 4.99
[2017-11-08 12:56] LABS: ALT 24 U/L (9-52); AST 13 U/L (14-36); Alkaline Phosphatase 65 U/L (38-126); Anion Gap 7 mmol/L; Blood Urea Nitrogen 9 mg/dL (7-17); Carbon Dioxide 26 mmol/L (22-30); Chloride 104 mmol/L (98-107); Glucose 97 mg/dL (74-99); Non-African American GFR(MDRD) >60 (>60 ml/min/1.73 sqM); Potassium 4.3 mmol/L (3.5-5.1); Sodium 137 mmol/L (137-145); Total Bilirubin 0.4 mg/dL (0.2-1.3); Total Protein 7.2 g/dL (6.3-8.2)
--- NOTE | 2017-11-08 16:49 | CT ---
EXAMINATION TYPE: CT abdomen w con DATE OF EXAM: 11/08/2017 COMPARISON: 03/31/2017 INDICATION: Right sided Mid pain for 8 months post liver surgery. DLP: 303 mGycm, Automated exposure control for dose reduction was used. CONTRAST: 100 mL of Omnipaque 300. Study performed with Oral Contrast TECHNIQUE: Axial images were obtained from above the diaphragm to the pubic rami in the axial plane a t 5 mm thick sections. Reconstructed images are reviewed on the computer in the coronal plane. FINDINGS: Limited CT sections are obtained the lung bases. The lung bases are clear. CT ABDOMEN: Liver: Left lobe liver appears resected Spleen: Normal Pancreas: Normal Adrenal glands: The adrenal glands are normal. Gallbladder: Normal Kidneys: No masses are evident. No hydronephrosis is present. No cysts are present. Delayed images were obtained through the kidneys, which remain unremarkable. Aorta: Normal Inferior vena cava: Normal. Loops of bowel within the abdomen and pelvis are normal. Loops of bowel distended with oral contr ast normal. Fecal debris is within the distal colon. There are some loops of bowel lacking oral contr ast limiting their evaluation. IMPRESSIONS: 1. Postsurgical changes within the liver. 2. No acute process is evident. 3. Moderate fecal retention
== END | disposition home or self-care (01) ==
LOC: RADCTMAIN 10:57
PROVIDERS: ATTEND Nurse Practitioner Acute Care
DX: K56.41 Fecal impaction (principal); Z98.890 Other specified postprocedural states
CPT/HCPCS: 80053; 85025; 74160; Q9967

== ENCOUNTER → 2017-12-27 | Outpatient (CLI) | payer OTHER ==
--- NOTE | 2017-12-28 08:16 | US ---
EXAMINATION TYPE: US pelvic complete DATE OF EXAM: 12/27/2017 COMPARISON: CT CLINICAL HISTORY: Pelvic Pain R10.2. TECHNIQUE: Transabdominal (TA) Date of LMP: July 2017, Nexplanin, arm implant control EXAM MEASUREMENTS: Uterus: 6.1 x 1.8 x 2.7 cm Endometrial Stripe: 0.3 cm Right Ovary: 2.5 x 1.4 x 1.6 cm Left Ovary: 1.7 x 1.3 x 1.1 cm 1. Uterus: Anteverted wnl 2. Endometrium: wnl 3. Right Ovary: wnl 4. Left Ovary: wnl 5. Bilateral Adnexa: wnl 6. Posterior cul-de-sac: wnl IMPRESSION: Unremarkable transabdominal pelvic ultrasound.
== END | disposition home or self-care (01) ==
LOC: RADUSWWP 15:41
PROVIDERS: ATTEND Obstetrics & Gynecology
DX: R10.2 Pelvic and perineal pain (principal)
CPT/HCPCS: 76856

== ENCOUNTER → 2019-01-08 | Outpatient (CLI) | payer OTHER ==
--- NOTE | 2019-01-09 05:20 | CT ---
EXAMINATION TYPE: CT angio head DATE OF EXAM: 01/08/2019 COMPARISON: 07/19/2017 CT brain HISTORY: 23-year-old female syncope TECHNIQUE: Contiguous axial scanning of the brain performed with IV Contrast, patient injected with 9 8 mL of Isovue 370. Coronal/sagittal MIP reconstructions performed. Rotational 3-D reconstructions of the [place] generated on a dedicated independent workstation. CT DLP: 1119 mGycm Automated exposure control for dose reduction was used. FINDINGS: Partial opacification of right mastoid air cells. Slightly high riding right jugular bulb. Visualized paranasal sinuses are clear. Orbits and globes appear intact. Dural venous sinuses appear patent. The vertebral, basilar, and internal carotid arteries appear patent without significant stenosis or a rterial occlusion. No aneurysmal changes seen. No discrete abnormal nidus of vessels is identified. T he anterior and posterior circulation are grossly patent. The vessels show smooth contour particularl y on the MIP reconstructions. 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 IMPRESSION: 1. 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 2. OTHERWISE, NO SPECIFIC ABNORMALITY IDENTIFIED ON CTA OF THE [place]. 3. PARTIAL OPACIFICATION OF RIGHT MASTOID AIR CELLS. CORRELATE FOR ANY MASTOID PAIN TO EXCLUDE MASTOI DITIS.
== END | disposition home or self-care (01) ==
LOC: RADCTMAIN 15:47
PROVIDERS: ATTEND Psychiatry & Neurology Neurology
DX: R55 Syncope and collapse (principal); Z88.5 Allergy status to narcotic agent; Z88.8 Allergy status to other drugs, medicaments and biological substances
CPT/HCPCS: 70496; Q9967

== ENCOUNTER → 2019-07-06 | Outpatient (CLI) | payer OTHER ==
--- NOTE | 2019-07-06 17:48 | MR ---
EXAMINATION TYPE: MR brain wo/w con DATE OF EXAM: 07/06/2019 COMPARISON: CT brain 07/19/[address] 04/09/2014 HISTORY: Prolactin Increase TECHNIQUE: Multiplanar, multisequence images of the brain and brainstem is performed without and with IV contras t, utilizing 5 mL intravenous Gadavist . FINDINGS: Diffusion weighted images demonstrate no evidence of a recent infarct or other diffusion ab normality. There is no extra-axial fluid collection or significant white matter signal abnormality. Punctate hyperdensities noted within the periventricular white matter on the left seen on prior CTs a re not seen definitively on the MRI. Numerous small gyri are seen best on T1-weighted images. The twan tricular system and cisternal spaces are normal in size and appearance. The brain volume is age appr opriate. Midline structures demonstrate normal morphology. The craniocervical junction appears within normal limits. Post contrast images demonstrate no abnormal enhancement. The dural venous sinuses appear pa tent. The visualized sinuses are clear and the globes are intact. 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
== END | disposition home or self-care (01) ==
LOC: RADMRIMAIN 16:10
PROVIDERS: ATTEND Obstetrics & Gynecology
DX: E22.9 Hyperfunction of pituitary gland, unspecified (principal)
CPT/HCPCS: 70553; A9585

== ENCOUNTER 2019-09-11 22:17 | Emergency (ER) | payer OTHER ==
--- NOTE | 2019-09-11 22:47 | ED ---
Chest Pain HPI - General Chief Complaint: Chest Pain Stated Complaint: Chest Pain Time Seen by Provider: 09/11/19 22:43 Source: patient Mode of arrival: wheelchair Limitations: physical limitation - History of Present Illness Initial Comments: Angelito is a 24-year-old female with extensive past medical history as documented. Patient is brought to the emergency department today by her parents for evaluation of chest pain. Patient reports she's been having sharp stabbing like chest pain for 4 days duration, she states that today while they were drivi ng the pain became severe and unbearable. This prompted her mom to bring her to the ER for evaluation. Patient has no history of cardiac disease, she has no history of clotting disorder family history of clotting disorder no history of DVT or PE in the past. Patient denies any exertional component of the chest pain she denies any shortness breath palpitations lightheadedness or diaphoresis. Pain is worse with palpation or deep. Patient has no associated fevers chills nausea vomiting cough congestion or recent illness. - Related Data Home Medications Medication Instructions Recorded Confirmed LORazepam [Ativan] 1 mg PO TID 01/11/17 09/11/19 Prazosin [Minipress] 3 mg PO HS 03/24/17 09/11/19 Cyclobenzaprine [Flexeril] 10 mg PO HS PRN 07/15/17 09/11/19 Amoxicillin 500 mg PO Q8H 09/11/19 09/11/19 Aviane 0.01-20 1 tab PO HS 09/11/19 09/11/19 Butalb/Acetaminophen/Caffeine 1 tab PO Q4H PRN 09/11/19 09/11/19 [Fioricet 50-325-40] DULoxetine HCL [Cymbalta] 120 mg PO HS 09/11/19 09/11/19 Dostinex 0.5mg 0.5 mg PO ROSARIO 09/11/19 09/11/19 Fluticasone Nasal [place] [Flonase 1 spray EA NOSTRIL HS 09/11/19 09/11/19 Nasal [place]] Gabapentin [Neurontin] 300 mg PO HS 09/11/19 09/11/19 Ibuprofen [Motrin Ib] 800 mg PO TID PRN 09/11/19 09/11/19 Omeprazole [PriLOSEC] 40 mg PO HS 09/11/19 09/11/19 Polyethylene Glycol 3350 [Miralax] 17 gm PO HS 09/11/19 09/11/19 Prompenlone 100mg 100 mg PO ACHS 09/11/19 09/11/19 QUEtiapine FUMARATE [SEROquel] 300 mg PO HS 09/11/19 09/11/19 Simethicone [Gas-X] 125 mg PO HS PRN 09/11/19 09/11/19 diphenhydrAMINE HCL [Benadryl] 50 mg PO HS 09/11/19 09/11/19 Allergies Allergy/AdvReac Type Severity Reaction Status Date / Time morphine AdvReac Severe Nausea & Verified 09/11/19 22:50 Vomiting phenobarbital AdvReac pt becomes Verified 09/11/19 22:50 extremely aggressive Review of Systems ROS Statement: Those systems with pertinent positive or pertinent negative responses have been documented in the HPI. ROS Other: All systems not noted in ROS Statement are negative. EKG Findings - EKG Comments: EKG Findings:: EKG was obtained due to complaining chest pain, EKG was obtained at 2237, rate is 95 rhythm is sinus there is normal axis, SD interval is shortened at 102, QRS 78, QTC is 457. There is no acute ST elevations or depressions no evidence of acute ischemia or infarction. 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 HAS KNEE BRACES TO STABILIZE KNEE CAP DUE TO HX OF "WATER ON HER KNEES)- CURRENTLY NOT USING BRACES. , HAVING VOMITING AND CONSTANT ABDOMINAL PAIN. History of Any Multi-Drug Resistant Organisms: None Reported Additional Past Surgical History / Comment(s): JAW SURGERY TO MOVE JAW FORWARD 3 INCHES-HAS PLATES AND SCREWS. PEG TUB PLACED CHILD AND REMOVED, tubes in ear as child, colonoscopy. RESECTION OF BENIGN LIVER TUMOR & HAD TO HAVE TO MORE SURGERYS DUE TO BLEEDING. (APRIL 2015) Past Anesthesia/Blood Transfusion Reactions: No Reported Reaction Additional Past Anesthesia/Blood Transfusion Reaction / Comment(s): pt had a blood transfuion w/ liver sx- no reaction Past Psychological History: Anxiety, Bipolar, Depression Smoking Status: Current some day smoker Past Alcohol Use History: Rare Past Drug Use History: None Reported - Past Family History Mother Family Medical History: No Reported History General Exam - General Exam Comments Initial Comments: Physical Exam GENERAL: Patient is well-developed and well-nourished. Patient is nontoxic and well- hydrated and is in no distress. HENT: Normocephalic, Atraumatic. EYES: PERRL, EOMI PULMONARY: Unlabored respirations. No audible rales rhonchi or wheezing was noted. CARDIOVASCULAR: There is a regular rate and rhythm without any murmurs gallops or rubs. Tenderness to palpation of the chest wall ABDOMEN: Soft and nontender with normal bowel sounds. Well healed surgical incisions SKIN: Skin is clear with no lesions or rashes and otherwise unremarkable. : Deferred NEUROLOGIC: Patient is alert and oriented x3. Moving all extremities spontaneously MUSCULOSKELETAL: Normal extremities with adequate strength and full range of motion. No lower extremity swelling or edema. No calf tenderness. PSYCHIATRIC: Anxious Limitations: physical limitation Course Vital Signs 09/11/19 22:24 Temperature 98.4 F Pulse Rate 87 Respiratory 20 Rate Blood Pressure 152/97 O2 Sat by Pulse [address] [facility] The patient was seen and evaluated history was obtained from patient This 24-year-old female with no cardiac history presenting with what seems to be musculoskeletal chest pain Workup was initiated She was given Toradol with no relief, she was subsequently given Dilaudid due to the morphine ALLERGY again had minimal relief, workup was unremarkable chest x- ray is normal EKG with no ischemic findings d-dimer and troponins are negative patient was given a GI cocktail and then attempted to treat possible GI etiology of discomfort. Patient also given ativan as she has a history of anxiety and has not had her anxiety medication Patient sleeping comfortably upon reevaluation. Workup and results were discussed with patient's caregiver who agrees the patient is likely suffering from some anxiety secondary to not taking her Ativan and having family who is visiting leave earlier today. At this time they're comfortable with the plan for discharge home and outpatient follow-up. Disposition Clinical Impression: Anterior pleuritic pain Disposition: HOME SELF-CARE Condition: Stable Instructions (If sedation given, give patient instructions): Chest Pain (ED) Additional Instructions: Kidney taking her Ativan 3 times daily, return to her previous dose of Seroquel and follow-up with her psychiatrist Is patient prescribed a controlled substance at d/c from ED?: No Referrals: Radha Herr DO [Primary Care Provider] - 1-2 days
[2019-09-11] MEDS ORDERED: SODIUM CHLORIDE 0.9% 500 ML 500 ML IV STA (22:53)
[2019-09-11] MEDS ORDERED: KETOROLAC 30 MG/ML 1 ML VIAL IVP STA (23:11)
[2019-09-11 23:27] LABS: Basophils # (A) 0.1 k/uL (0-0.2); Basophils % (A) 1 %; Eosinophils # (A) 0.1 k/uL (0-0.7); Eosinophils % (A) 2 %; Lymphocytes # (A) 2.3 k/uL (1.0-4.8); Lymphocytes % (A) 32 %; MCH 31.6 pg (25.0-35.0); MCHC 33.4 g/dL (31.0-37.0); MCV 94.7 fL (80.0-100.0); Mean Platelet Volume 8.3; Monocytes # (A) 0.4 k/uL (0-1.0); Monocytes % (A) 5 %; Neutrophils # (A) 4.1 k/uL (1.3-7.7); Neutrophils % (A) 57 %; Platelet Count 253 k/uL (150-450); RBC 4.44 m/uL (3.80-5.40); WBC 7.1 k/uL (3.8-10.6)
--- NOTE | 2019-09-11 23:32 | XR ---
EXAMINATION TYPE: XR chest 2V DATE OF EXAM: 09/11/2019 COMPARISON: NONE HISTORY: Chest pain TECHNIQUE: Frontal and lateral views of the chest are obtained. FINDINGS: Heart and mediastinum are normal. Lungs are clear. Diaphragm is normal. Bony thorax appear s normal. IMPRESSION: Normal chest
[2019-09-11 23:40] LABS: D-Dimer 0.2 mg/L FEU (<0.60); INR 0.9 (<1.2); Partial Thromboplastin Time 26.7 sec (22.0-30.0); Prothrombin Time 9.6 sec (9.0-12.0)
[2019-09-11 23:42] LABS: ALT 16 U/L (9-52); AST 19 U/L (14-36); African American GFR (CKD) >90 (>60 ml/min/1.73 sqM); Albumin 4.4 g/dL (3.5-5.0); Alkaline Phosphatase 50 U/L (38-126); Anion Gap 5 mmol/L; Blood Urea Nitrogen 14 mg/dL (7-17); Carbon Dioxide 29 mmol/L (22-30); Chloride 104 mmol/L (98-107); Glucose 90 mg/dL (74-99); Magnesium 2.1 mg/dL (1.6-2.3); Potassium 4.5 mmol/L (3.5-5.1); Sodium 138 mmol/L (137-145); Total Bilirubin 0.2 mg/dL (0.2-1.3); Total Protein 7.5 g/dL (6.3-8.2)
[2019-09-12] MEDS ORDERED: HYDROmorphone 1 MG/ML 1 ML SYRINGE IVP STA
[2019-09-12] MEDS ORDERED: MAG HYDROX/AL HYDROX/SIMETH 30 ML, HYOSCYAMINE ELIXIR 10 ML, LIDOCAINE VISCOUS 2% 10 ML PO STA ×3 (02:21)
[2019-09-12] MEDS ORDERED: LORazepam 2 MG/ML INJ IV STA (02:21)
--- NOTE | 2019-09-12 02:39 | XR ---
EXAMINATION TYPE: XR KUB DATE OF EXAM: 09/12/2019 COMPARISON: 04/08/2017 HISTORY: Abdominal pain TECHNIQUE: Single view FINDINGS: There is some retained fecal material in the large bowel. There is no sign of intestinal ob struction or pneumoperitoneum. There are no pathologic calcifications over the kidneys. IMPRESSION: Mild constipation. Fecal material increased compared to old exam. No free air.
[2019-09-12] MEDS ORDERED: HYDROmorphone 0.5 MG/0.5 ML SYRINGE IVP STA (04:48)
[2019-09-12 05:05] VITALS: BP 133/92; PULSE 98; RESP 18; TEMP 97.9
== END 2019-09-12 05:05 | disposition home or self-care (01) ==
LOC: EC 22:17
DX: R07.81 Pleurodynia (principal); F41.9 Anxiety disorder, unspecified; F31.9 Bipolar disorder, unspecified; K59.00 Constipation, unspecified; R11.10 Vomiting, unspecified; R10.9 Unspecified abdominal pain; F17.200 Nicotine dependence, unspecified, uncomplicated; Z88.5 Allergy status to narcotic agent; Z88.8 Allergy status to other drugs, medicaments and biological substances; Z79.51 Long term (current) use of inhaled steroids; Z79.899 Other long term (current) drug therapy; Z86.69 Personal history of other diseases of the nervous system and sense organs; Z97.5 Presence of (intrauterine) contraceptive device; Z98.890 Other specified postprocedural states
CPT/HCPCS: 36415; 93005; 85379; 80053; 83690; 83735; 84484; 85025; 85610; 85730; 71046; 74018; 99285; 96374; 96375 ×2; 96376; 96361; J2060; J1885; J1170 ×2

== ENCOUNTER 2019-12-02 15:18 | Emergency (ER) | payer OTHER ==
[2019-12-02] MEDS ORDERED: SODIUM CHLORIDE 0.9% 500 ML 500 ML IV STA (15:54)
[2019-12-02] MEDS ORDERED: IBUPROFEN 600 MG TAB PO STA (15:54)
[2019-12-02 16:21] LABS: Basophils # (A) 0.1 k/uL (0-0.2); Basophils % (A) 2 %; Eosinophils # (A) 0.1 k/uL (0-0.7); Eosinophils % (A) 2 %; HCT 37.1 % (34.0-46.0); HGB 12.2 gm/dL (11.4-16.0); Lymphocytes % (A) 31 %; MCH 30.9 pg (25.0-35.0); MCHC 32.8 g/dL (31.0-37.0); MCV 94.4 fL (80.0-100.0); Mean Platelet Volume 9.7; Monocytes # (A) 0.3 k/uL (0-1.0); Monocytes % (A) 5 %; Neutrophils # (A) 3.7 k/uL (1.3-7.7); Neutrophils % (A) 57 %; Platelet Count 288 k/uL (150-450); RBC 3.93 m/uL (3.80-5.40); RDW 13.3 % (11.5-15.5); WBC 6.4 k/uL (3.8-10.6)
[2019-12-02 16:33] LABS: ALT 11 U/L (4-34); AST 16 U/L (14-36); African American GFR (CKD) >90 (>60 ml/min/1.73 sqM); Albumin 3.9 g/dL (3.5-5.0); Alkaline Phosphatase 57 U/L (38-126); Anion Gap 3 mmol/L; Blood Urea Nitrogen 11 mg/dL (7-17); Calcium 9.3 mg/dL (8.4-10.2); Carbon Dioxide 26 mmol/L (22-30); Chloride 110 mmol/L (98-107); Glucose 94 mg/dL (74-99); Non-African American GFR(CKD) >90 (>60 ml/min/1.73 sqM); Potassium 4.5 mmol/L (3.5-5.1); Sodium 139 mmol/L (137-145); Total Bilirubin 0.2 mg/dL (0.2-1.3)
--- NOTE | 2019-12-02 16:59 | ED ---
General Adult HPI - General Chief complaint: GI Bleed Stated complaint: Rectal bleeding Time Seen by Provider: 12/02/19 15:25 Source: patient Mode of arrival: ambulatory Limitations: no limitations - History of Present Illness Initial comments: Patient is a 24-year-old female, With past medical history of perisylvian syndrome, speech impairment, mental delay, presenting to the emergency Department, with her parents, with complaints of 2 episodes of rectal bleeding. She states the first episode was yesterday evening after she had a bowel movement. Patient has history of constipation issues. Patient states the second episode happened today. States there was some bright red blood in the toilet and when she wiped. She is not actively bleeding. She has been worked up in the past and has numerous GI doctors secondary to the constipation. Rocio cardona admits to some mild left-sided abdominal pain, no fever, no chills, no nausea, vomiting. She has no other complaints at this time. Upon arrival to the ER, her vital signs are stable. - Related Data Home Medications Medication Instructions Recorded Confirmed LORazepam [Ativan] 1 mg PO TID 01/11/17 09/11/19 Prazosin [Minipress] 3 mg PO HS 03/24/17 09/11/19 Cyclobenzaprine [Flexeril] 10 mg PO HS PRN 07/15/17 09/11/19 Amoxicillin 500 mg PO Q8H 09/11/19 09/11/19 Aviane 0.01-20 1 tab PO HS 09/11/19 09/11/19 Butalb/Acetaminophen/Caffeine 1 tab PO Q4H PRN 09/11/19 09/11/19 [Fioricet 50-325-40] DULoxetine HCL [Cymbalta] 120 mg PO HS 09/11/19 09/11/19 Dostinex 0.5mg 0.5 mg PO ROSARIO 09/11/19 09/11/19 Fluticasone Nasal [place] [Flonase 1 spray EA NOSTRIL HS 09/11/19 09/11/19 Nasal [place]] Gabapentin [Neurontin] 300 mg PO HS 09/11/19 09/11/19 Ibuprofen [Motrin Ib] 800 mg PO TID PRN 09/11/19 09/11/19 Omeprazole [PriLOSEC] 40 mg PO HS 09/11/19 09/11/19 Polyethylene Glycol 3350 [Miralax] 17 gm PO HS 09/11/19 09/11/19 Prompenlone 100mg 100 mg PO ACHS 09/11/19 09/11/19 QUEtiapine FUMARATE [SEROquel] 300 mg PO HS 09/11/19 09/11/19 Simethicone [Gas-X] 125 mg PO HS PRN 09/11/19 09/11/19 diphenhydrAMINE HCL [Benadryl] 50 mg PO HS 09/11/19 09/11/19 Allergies Allergy/AdvReac Type Severity Reaction Status Date / Time morphine AdvReac Severe Nausea & Verified 12/02/19 15:24 Vomiting phenobarbital AdvReac pt becomes Verified 12/02/19 15:24 extremely aggressive Review of Systems ROS Statement: Those systems with pertinent positive or pertinent negative responses have been documented in the HPI. ROS Other: All systems not noted in ROS Statement are negative. 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 HAS KNEE BRACES TO STABILIZE KNEE CAP DUE TO HX OF "WATER ON HER KNEES)- CURRENTLY NOT USING BRACES. , HAVING VOMITING AND CONSTANT ABDOMINAL PAIN. History of Any Multi-Drug Resistant Organisms: None Reported Additional Past Surgical History / Comment(s): JAW SURGERY TO MOVE JAW FORWARD 3 INCHES-HAS PLATES AND SCREWS. PEG TUB PLACED CHILD AND REMOVED, tubes in ear as child, colonoscopy. RESECTION OF BENIGN LIVER TUMOR & HAD TO HAVE TO MORE SURGERYS DUE TO BLEEDING. (APRIL 2015) Past Anesthesia/Blood Transfusion Reactions: No Reported Reaction Additional Past Anesthesia/Blood Transfusion Reaction / Comment(s): pt had a blood transfuion w/ liver sx- no reaction Past Psychological History: Anxiety, Bipolar, Depression Smoking Status: Current some day smoker Past Alcohol Use History: Rare Past Drug Use History: Marijuana - Past Family History Mother Family Medical History: No Reported History General Exam - General Exam Comments Initial Comments: GENERAL: Well-appearing, well-nourished and in no acute distress. HEAD: Atraumatic, normocephalic. EYES: Pupils equal round and reactive to light, extraocular movements intact, sclera anicteric, conjunctiva are normal. ENT: TMs normal, nares patent, oropharynx clear without exudates. Moist mucous membranes. NECK: Normal range of motion, supple without lymphadenopathy or JVD. LUNGS: Breath sounds clear to auscultation bilaterally and equal. No wheezes rales or rhonchi. HEART: Regular rate and rhythm without murmurs, rubs or gallops. ABDOMEN: Mild left-sided abdominal pain, no sharp shooting pain. Soft, normoactive bowel sounds. No guarding, no rebound. No masses appreciated. EXTREMITIES: Normal range of motion, no pitting or edema. No clubbing or cyanosis. PSYCH: Normal mood, normal affect. SKIN: Warm, Dry, normal turgor, no rashes or lesions noted. Limitations: no limitations Rectal exam: Present: normal rectal tone, heme (+) stool. Absent: fecal impaction, hemorrhoids Course Vital Signs 12/02/19 12/02/19 15:20 17:39 Temperature 98.1 F 99.6 F Pulse Rate 88 85 Respiratory 18 16 Rate Blood Pressure 138/98 128/96 O2 Sat by Pulse 99 98 Oximetry Medical Decision Making - Medical Decision Making Patient is a 24-year-old female presenting with 2 episodes of rectal bleeding after a bowel movement. Patient has long history of constipation. Occult blood is positive. There is no active bleeding. Lab work is unremarkable, hemoglobin is 12.2. KUB shows moderate constipation. I discussed these findings with the patient and her parents that her bleeding is most likely from a small internal hemorrhoid and/or from her constipation. Patient will continue with MiraLAX and a few days of a laxative. I did give patient some fluids to help with hydration. She will continue to increase her fluid intake. Patient will follow up with her GI specialist. She is stable for discharge at this time and patient and her parents agree with this plan of care. Return parameters were discussed with them and they verbalized understanding. Case discussed with Dr. Francois. - Lab Data Result diagrams: 12/02/19 16:10 12/02/19 16:10 Lab Results 12/02/19 12/02/19 12/02/19 Range/Units 16:10 16:10 16:10 WBC 6.4 (3.8-10.6) k/uL RBC 3.93 (3.80-5.40) m/uL Hgb 12.2 (11.4-16.0) gm/dL Hct 37.1 (34.0-46.0) % MCV 94.4 (80.0-100.0) fL MCH 30.9 (25.0-35.0) pg MCHC 32.8 (31.0-37.0) g/dL RDW 13.3 (11.5-15.5) % Plt Count 288 (150-450) k/uL Neutrophils % 57 % Lymphocytes % 31 % Monocytes % 5 % Eosinophils % 2 % Basophils % 2 % Neutrophils # 3.7 (1.3-7.7) k/uL Lymphocytes # 2.0 (1.0-4.8) k/uL Monocytes # 0.3 (0-1.0) k/uL Eosinophils # 0.1 (0-0.7) k/uL Basophils # 0.1 (0-0.2) k/uL Sodium 139 (137-145) mmol/L Potassium 4.5 (3.5-5.1) mmol/L Chloride 110 H (98-107) mmol/L Carbon Dioxide 26 (22-30) mmol/L Anion Gap 3 mmol/L BUN 11 (7-17) mg/dL Creatinine 0.58 (0.52-1.04) mg/dL Est GFR (CKD-EPI)AfAm >90 (>60 ml/min/1.73 sqM) Est GFR (CKD-EPI)NonAf >90 (>60 ml/min/1.73 sqM) Glucose 94 (74-99) mg/dL Calcium 9.3 (8.4-10.2) mg/dL Total Bilirubin 0.2 (0.2-1.3) mg/dL AST 16 (14-36) U/L ALT 11 (4-34) U/L Alkaline Phosphatase 57 (38-126) U/L Total Protein 7.0 (6.3-8.2) g/dL Albumin 3.9 (3.5-5.0) g/dL Stool Occult Blood Positive H (Negative) Disposition Clinical Impression: Abdominal pain, Rectal bleeding, Constipation Disposition: HOME SELF-CARE Condition: Stable Instructions (If sedation given, give patient instructions): Constipation (ED) Additional Instructions: Please return to the Emergency Department if symptoms worsen or any other concerns. Continue to increase fluid intake. Continue with MiraLAX as well as a laxative for a few days. Follow up with GI as discussed. Is patient prescribed a controlled substance at d/c from ED?: No Referrals: Radha Herr DO [Primary Care Provider] - 1-2 days
--- NOTE | 2019-12-02 17:05 | XR ---
EXAMINATION TYPE: XR KUB DATE OF EXAM: 12/02/2019 COMPARISON: 09/12/2019 HISTORY: Abdominal pain TECHNIQUE: 2 views supine FINDINGS: There is no sign of intestinal obstruction or pneumoperitoneum. There is moderate retained fecal material in the colon. There are no pathologic calcifications. IMPRESSION: Constipation appears the same or slightly worse than last exam. No free air.
[2019-12-02 17:41] VITALS: BP 128/96; PULSE 85; RESP 16; TEMP 99.6
== END 2019-12-02 17:39 | disposition home or self-care (01) ==
LOC: EC 15:18
DX: K62.5 Hemorrhage of anus and rectum (principal); K59.00 Constipation, unspecified; Q04.3 Other reduction deformities of brain; F31.9 Bipolar disorder, unspecified; F41.9 Anxiety disorder, unspecified; Z88.5 Allergy status to narcotic agent; Z88.8 Allergy status to other drugs, medicaments and biological substances; Z79.51 Long term (current) use of inhaled steroids; Z79.899 Other long term (current) drug therapy
CPT/HCPCS: 36415; 74018; 80053; 82272; 85025; 96360; 99284

== ENCOUNTER 2021-04-07 11:24 | Day surgery (SDC) | payer OTHER ==
[2021-04-02 11:51] VITALS: BMI 25.0
[~2021-04-07 11:24] MED LIST changes: -LACTATED RINGERS 1,000 ML IV SCH; -LIDOCAINE 1% 20 ML VIAL (10MG/ML) FOR IV START INTRADERMA PRN; +SODIUM CHLORIDE 0.9% 1,000 ML IV SCH
[2021-04-07 11:58] VITALS: BP 110/62; PULSE 78; RESP 18; TEMP 99.1
--- NOTE | 2021-04-09 13:17 | P.EPPROC ---
- EP Procedure Note Electrophysiology Procedure Note: Diagnosis Recurrent syncope Twelve-lead EKG shows sinus rhythm short MS interval 104 ms but without any delta waves, narrow QRS Normal QT interval less than 420 ms No delta waves no epsilon waves Tilt table test protocol Baseline blood pressure 112/74 mmHg, Baseline heart rate 63 beats a minute line patient was tilted upright at night over 70 per protocol No significant change in heart rate and blood pressure She did complain of nausea immediately upon assuming upright position but wi thout any significant change in heart rate and blood pressure She was laid supine at the end of the procedure Impression Twelve-lead EKG does not show any significant abnormalities Normal heart rate and blood pressure response to upright tilting
== END 2021-04-07 14:40 | disposition home or self-care (01) ==
LOC: CATHEP 11:24
PROVIDERS: ATTEND Internal Medicine Clinical Cardiac Electrophysiology
DX: R55 Syncope and collapse (principal); R07.89 Other chest pain; R94.39 Abnormal result of other cardiovascular function study; Z79.899 Other long term (current) drug therapy
CPT/HCPCS: 81025; 93660

== ENCOUNTER 2022-03-14 17:19 | Emergency (ER) | payer OTHER ==
--- NOTE | 2022-03-14 19:19 | XR ---
EXAMINATION TYPE: XR hand complete RT DATE OF EXAM: 03/14/2022 COMPARISON: NONE HISTORY: Pain TECHNIQUE: 3 views FINDINGS: Metacarpals appear intact. I see no fracture nor dislocation. The fingers appear intact. IMPRESSION: Negative right hand exam. No fracture seen.
[2022-03-14] MEDS ORDERED: KETOROLAC 15 MG/ML 1 ML VIAL IM STA (21:12)
--- NOTE | 2022-03-14 21:18 | ED ---
Upper Extremity HPI - General Chief Complaint: Extremity Injury, Upper Stated Complaint: Rt Wrist Injury Time Seen by Provider: 03/14/22 20:56 Source: patient Mode of arrival: ambulatory Limitations: no limitations - History of Present Illness Initial Comments: Patient is a 26-year-old female who presents with right hand pain. Patient states yesterday she slammed her hand down too hard at her friend's house yesterday. Patient reports pain on the pinky side of her hand. She has not taken anything for pain. No numbness or tingling. She has no other concerns. - Related Data Home Medications Medication Instructions Recorded Confirmed LORazepam [Ativan] 1 mg PO HS 01/11/17 04/07/21 Prazosin [Minipress] 3 mg PO HS 03/24/17 04/07/21 Butalb/Acetaminophen/Caffeine 1 tab PO Q4H PRN 09/11/19 04/07/21 [Fioricet 50-325-40] DULoxetine HCL [Cymbalta] 120 mg PO HS 09/11/19 04/07/21 Fluticasone Nasal [place] [Flonase 1 spray EA NOSTRIL HS PRN 09/11/19 04/07/21 Nasal [place]] Gabapentin [Neurontin] 600 mg PO HS 09/11/19 04/07/21 Omeprazole [PriLOSEC] 40 mg PO HS 09/11/19 04/07/21 Polyethylene Glycol 3350 [Miralax] 17 gm PO HS PRN 09/11/19 04/07/21 QUEtiapine FUMARATE [SEROquel] 500 mg PO HS 09/11/19 04/07/21 Simethicone [Gas-X] 125 mg PO HS PRN 09/11/19 04/07/21 diphenhydrAMINE HCL [Benadryl] 50 mg PO HS 09/11/19 04/07/21 Expalon Implant 04/02/21 Metoprolol Succinate [Toprol XL] 50 mg PO HS 04/02/21 04/07/21 Allergies Allergy/AdvReac Type Severity Reaction Status Date / Time morphine AdvReac Severe Nausea & Verified 04/07/21 11:40 Vomiting phenobarbital AdvReac pt becomes Verified 04/07/21 11:40 extremely aggressive Review of Systems ROS Statement: Those systems with pertinent positive or pertinent negative responses have been documented in the HPI. ROS Other: All systems not noted in ROS Statement are negative. 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 HAS KNEE BRACES TO STABILIZE KNEE CAP DUE TO HX OF "WATER ON HER KNEES)- CURRENTLY NOT USING BRACES. , HAVING VOMITING AND CONSTANT ABDOMINAL PAIN.TACHYCARDIA, SEE DR ORNELAS'S HISTORY AND PHYSICAL FOR CARDIAC HISTORY History of Any Multi-Drug Resistant Organisms: None Reported Additional Past Surgical History / Comment(s): JAW SURGERY TO MOVE JAW FORWARD 3 INCHES-HAS PLATES AND SCREWS. PEG TUBE PLACED CHILD AND REMOVED, tubes in ear as child, colonoscopy,. RESECTION OF BENIGN LIVER TUMOR & HAD TO HAVE TO MORE SURGERYS DUE TO BLEEDING. (APRIL 2015) Past Anesthesia/Blood Transfusion Reactions: No Reported Reaction Additional Past Anesthesia/Blood Transfusion Reaction / Comment(s): pt had a blood transfuion w/ liver sx- no reaction Past Psychological History: Anxiety, Bipolar, Depression Smoking Status: Vaper Past Alcohol Use History: Rare Past Drug Use History: Marijuana - Past Family History Mother Family Medical History: Pulmonary Embolus General Exam Limitations: no limitations General appearance: alert, in no apparent distress Head exam: Present: atraumatic, normocephalic, normal inspection Eye exam: Present: normal appearance, PERRL, EOMI. Absent: scleral icterus, conjunctival injection, periorbital swelling Neck exam: Present: normal inspection, full ROM Respiratory exam: Present: normal lung sounds bilaterally. Absent: respiratory distress, wheezes, rales, rhonchi, stridor Cardiovascular Exam: Present: regular rate, normal rhythm, normal heart sounds. Absent: systolic murmur, diastolic murmur, rubs, gallop, clicks GI/Abdominal exam: Present: soft, normal bowel sounds. Absent: distended, tenderness, guarding, rebound, rigid Right Hand Wrist exam: Present: full ROM, tenderness, other (minimal bruising of the fifth metacarpal on medial aspect of hand with tenderness. No snuffbox tenderness.). Absent: normal inspection, swelling Neuro motor exam: Present: wrist extension intact, thumb opposition intact, t humb IP flexion intact, thumb adduction intact, fingers 2-5 abduction intact Vascular: Present: normal capillary refill, radial pulse, brachial pulse, ulnar pulse. Absent: vascular compromise, Pallo Neurological exam: Present: alert, oriented X3, CN II-XII intact Psychiatric exam: Present: normal affect, normal mood Skin exam: Present: warm, dry, intact, normal color. Absent: rash Course Vital Signs 03/14/22 18:30 Temperature 97.8 F Pulse Rate 73 Respiratory 18 Rate Blood Pressure 123/89 O2 Sat by Pulse 96 Oximetry Medical Decision Making - Medical Decision Making This is a 26-year-old female who presents with right hand pain. Thorough history and examination were performed. There is minimal bruising over the medial aspect of the fifth metacarpal with tenderness. No snuffbox tenderness. No numbness or tingling. Patient given Toradol for pain. Patient was wrapped in Ag bandage for comfort. Patient will be discharged with RICE education. Patient and her mother verbalize understanding and are agreeable to this plan. Dr. Kat is my attending. Disposition Clinical Impression: Hand pain, right Disposition: HOME SELF-CARE Condition: Good Instructions (If sedation given, give patient instructions): Contusion in Adults (ED) Additional Instructions: Please take Motrin or another anti-inflammatory as needed for pain. You can ice the hand 4 times a day for 20 minutes each session for symptom relief. Rest and elevation will also help your symptoms. Return to the emergency department if you experience new, concerning, or worsening symptoms. Is patient prescribed a controlled substance at d/c from ED?: No Referrals: Radha Herr DO [Primary Care Provider] - 1-2 days Time of Disposition: 21:18
[2022-03-14 21:43] VITALS: BP 127/78; PULSE 78; RESP 16; TEMP 98
== END 2022-03-14 21:42 | disposition home or self-care (01) ==
LOC: EC 17:19
DX: S60.051A Contusion of right little finger without damage to nail, initial encounter (principal); F41.9 Anxiety disorder, unspecified; F31.9 Bipolar disorder, unspecified; F17.290 Nicotine dependence, other tobacco product, uncomplicated; F12.90 Cannabis use, unspecified, uncomplicated; Z88.5 Allergy status to narcotic agent; W22.8XXA Striking against or struck by other objects, initial encounter
CPT/HCPCS: 99283; 96372; 73130; J1885

== ENCOUNTER 2022-05-31 19:31 | Emergency (ER) | payer OTHER ==
[2022-05-31 19:46] VITALS: RESP 18; TEMP 97.4
[2022-06-01] MEDS ORDERED: MORPHINE SULFATE 4 MG/ML SYRINGE IV STA ×2 (02:02→04:23)
[2022-06-01] MEDS ORDERED: SODIUM CHLORIDE 0.9% 500 ML 500 ML IV STA (02:02)
[2022-06-01] MEDS ORDERED: ONDANSETRON 4 MG/2 ML VIAL IVP STA (02:26)
[2022-06-01 02:30] LABS: Basophils # (A) 0.1 k/uL (0-0.2); Basophils % (A) 1 %; Eosinophils # (A) 0.1 k/uL (0-0.7); Eosinophils % (A) 1 %; HCT 40.8 % (34.0-46.0); HGB 13.7 gm/dL (11.4-16.0); Lymphocytes # (A) 1.5 k/uL (1.0-4.8); Lymphocytes % (A) 15 %; MCH 32.7 pg (25.0-35.0); MCHC 33.7 g/dL (31.0-37.0); Mean Platelet Volume 9.4; Monocytes # (A) 0.8 k/uL (0-1.0); Monocytes % (A) 7 %; Neutrophils # (A) 7.6 k/uL (1.3-7.7); Neutrophils % (A) 74 %; Platelet Count 273 k/uL (150-450); RBC 4.21 m/uL (3.80-5.40); RDW 13.6 % (11.5-15.5); WBC 10.3 k/uL (3.8-10.6)
[2022-06-01 02:43] LABS: ALT 13 U/L (4-34); AST 18 U/L (14-36); African American GFR (CKD) >90 (>60 ml/min/1.73 sqM); Albumin 4.4 g/dL (3.5-5.0); Alkaline Phosphatase 79 U/L (38-126); Amylase 49 U/L (30-110); Anion Gap 8 mmol/L; Blood Urea Nitrogen 15 mg/dL (7-17); C Reactive Protein <0.5 mg/dL (<1.0); Calcium 9.4 mg/dL (8.4-10.2); Carbon Dioxide 25 mmol/L (22-30); Chloride 103 mmol/L (98-107); Glucose 94 mg/dL (74-99); Lipase 46 U/L (23-300); Non-African American GFR(CKD) >90 (>60 ml/min/1.73 sqM); Potassium 3.7 mmol/L (3.5-5.1); Sodium 136 mmol/L (137-145); Total Bilirubin 0.5 mg/dL (0.2-1.3); Total Protein 7.4 g/dL (6.3-8.2)
[2022-06-01 02:57] LABS: Appearance,Urine Cloudy (Clear); Bacteria,Urine Rare /hpf; Bilirubin,Urine 1+ (Negative); Blood,Urine Trace (Negative); Calcium Oxalate Crystals,Urine Rare /hpf; Color,Urine Dark Brown; Glucose,Urine (UA) Negative (Negative); Ketones,Urine 1+ (Negative); Leukocyte Esterase,Urine Trace (Negative); Mucus,Urine Many /hpf; Nitrite,Urine Negative (Negative); Protein,Urine 1+ (Negative); RBC,Urine 2 /hpf (0-5); Specific Gravity,Urine 1.031 (1.001-1.035); Squamous Epithelial Cell,Urine 22 /hpf (0-4); WBC,Urine 2 /hpf (0-5)
--- NOTE | 2022-06-01 04:21 | CT ---
EXAM: CT Abdomen and Pelvis Without Intravenous Contrast CLINICAL HISTORY: ITS.REASON CT Reason: abdominal pain TECHNIQUE: Axial computed tomography images of the abdomen and pelvis without intravenous contrast. CTDI is 5.7 mGy and DLP is 285.6 mGy-cm. This CT exam was performed using one or more of the following dose reduction techniques: automated exposure control, adjustment of the mA and/or kV according to patient size, and/or use of iterative reconstruction technique. COMPARISON: 11/08/2017 FINDINGS: Lung bases: Unremarkable. No mass. No consolidation. ABDOMEN: Liver: Unremarkable. Gallbladder and bile ducts: Unremarkable. No calcified stones. No ductal dilation. Pancreas: Unremarkable. No ductal dilation. Spleen: Unremarkable. No splenomegaly. Adrenals: Unremarkable. No mass. Kidneys and ureters: Unremarkable. No obstructing stones. No hydronephrosis. Stomach and bowel: Unremarkable. No obstruction. No mucosal thickening. PELVIS: Appendix: No findings to suggest acute appendicitis. Bladder: Unremarkable. No stones. Reproductive: Unremarkable as visualized. ABDOMEN and PELVIS: Intraperitoneal space: Unremarkable. No free air. No significant fluid collection. Bones/joints: No acute fracture. No dislocation. Soft tissues: No change calcifications The left hemidiaphragm and adjacent to the greater curvature of the stomach.. Vasculature: Unremarkable. No abdominal aortic aneurysm. Lymph nodes: Unremarkable. No enlarged lymph nodes. IMPRESSION: No acute intra-abdominal process.
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
[2022-06-01] MEDS ORDERED: MAGNESIUM CITRATE 296 ML BOTTLE PO ONE (04:29)
[2022-06-01 04:49] VITALS: BP 128/86; PULSE 87
== END 2022-06-01 04:49 | disposition home or self-care (01) ==
LOC: EC 19:31
DX: R10.32 Left lower quadrant pain (principal); F41.9 Anxiety disorder, unspecified; F31.9 Bipolar disorder, unspecified; F17.290 Nicotine dependence, other tobacco product, uncomplicated; F12.90 Cannabis use, unspecified, uncomplicated; Z88.6 Allergy status to analgesic agent; Z88.2 Allergy status to sulfonamides; Z79.899 Other long term (current) drug therapy
CPT/HCPCS: 36415; 80053; 82150; 83690; 85025; 86140; 81001; 81025; 74176; 99284; 96374; 96375; 96376; 96361 ×2; J2270; J2405

== ENCOUNTER → 2022-07-21 | Outpatient (CLI) | payer OTHER ==
--- NOTE | 2022-07-22 14:14 | MR ---
EXAMINATION TYPE: MR lumbar spine wo/w con DATE OF EXAM: 07/21/2022 4:53 PM COMPARISON: CT abdomen pelvis 06/01/2022.. CLINICAL INDICATION:Female, 27 years old with history of M54.50 LOW BACK PAIN,N39.42 URINARY INCONTIN ENCE; TECHNIQUE: Multi planar, multi sequence imaging was performed utilizing: T1-weighted, T2-weighted, I V Contrast: 5 cc Gadavist FINDINGS: Alignment: The lumbar vertebral bodies have preserved heights and alignment. Cord: The conus medullaris and the distal spinal cord appear unremarkable with regards to their signa l intensity and morphology. No abnormal postcontrast enhancement. Bones/Discs: Bone signal is within normal limits. There are minimal disc degeneration changes through out the spine. No abnormal postcontrast enhancement. L1-L2: No significant disc pathology. Spinal canal is patent. The neural foramen are patent. L2-L3: No significant disc pathology. Spinal canal is patent. The neural foramen are patent. L3-L4: No significant disc pathology. Spinal canal is patent. The neural foramen are patent. L4-L5: No significant disc pathology. Spinal canal is patent. The neural foramen are patent. L5-S1: No significant disc pathology. Spinal canal is patent. The neural foramen are patent. Other findings: Focal junctional zone thickening is seen in the posterior uterus measuring up to 8 m m. The ovaries demonstrate follicles bilaterally. IMPRESSION: 1. No definitive evidence of disc herniation or significant spinal canal stenosis. No abnormal postc ontrast enhancement. 2. Minimal disc degeneration changes throughout the spine.
== END | disposition home or self-care (01) ==
LOC: RADMRIMAIN 15:30
PROVIDERS: ATTEND Nurse Practitioner Family
DX: M51.36 Other intervertebral disc degeneration, lumbar region (principal)
CPT/HCPCS: 72158; A9585

== ENCOUNTER → 2024-07-02 | Outpatient (CLI) | payer OTHER ==
--- NOTE | 2024-07-13 15:52 | LTR ---
ADDRESS: Roxy Love PA-C. BODY: 29-year-old lady had been evaluated in [facility] Center for her sleep problems. HISTORY OF PRESENT ILLNESS: Sleep-wake evaluation. Usual sleep schedule from 7:00 p.m. until 7:00 a.m. The patient has sometimes significant problems with falling asleep, has TV set in bedroom. The patient snores and has restless legs symptoms while falling asleep. Positive history of dry mouth, panic attack, sleep talking, sweating. The patient wakes up from sleep 3 times with 2 episodes of nocturia. The patient is seeing dreams, but usually on the second part of the night. No history of hypnagogic hallucinations, sleep paralysis, or cataplexy. In the morning, the patient wakes up tired, has difficulties to pay attention, worries about her sleep; has episodes of irritability, depression, and anxiety. [place] Sleepiness Scale significantly increased to 14. The patient may take naps around noontime occasionally. PAST MEDICAL HISTORY: Positive for bipolar, depression, anxiety, episodes of tachycardia, seizures, hyperlipidemia, COPD, acid reflux. MEDICATIONS: 1. Duloxetine 60 mg 2 capsules at bedtime. 2. Gabapentin 300 mg 1 capsule at bedtime. 3. Cyclobenzaprine 5 mg 3 times a day. 4. Trazodone 100 mg 2 tablets at bedtime. 5. Pantoprazole 40 mg once a day. 6. Famotidine 40 mg once a day. 7. Atorvastatin 20 mg once a day. 8. Diphenhydramine 25 mg once a day. 9. Prazosin 1 mg 1 capsule in the morning. 10.Quetiapine 400 mg one tablet 2 hours before bedtime. 11.Melatonin 10 mg at bedtime. 12.Spiriva inhaler as needed. SOCIAL HISTORY: Negative for smoking cigarettes, positive for vaping. Alcohol, occasionally. The patient smoking marijuana. FAMILY HISTORY: Positive for stroke, fibromyalgia, arthritis, asthma, sinus problems, sleep apnea, cancer, anemia, thyroid problems. REVIEW OF SYSTEMS: Snoring, multiple awakenings from sleep, difficulties to initiate sleep, sleepiness during the day. No fevers. No double vision. No recent chest pain. No shortness of breath. No abdominal pain. No bleeding episodes. No blood in the urine. No recent episodes of seizures. PHYSICAL EXAMINATION: GENERAL: The patient in no distress. VITAL SIGNS: BP 120/85, HR 89, RR 16, height 4 feet 11 inches, weight 104, body mass index 21, temperature 98.6, oxygen saturation at room air 99%. HEENT: Oropharynx, small oropharyngeal airspace, wide uvula. Tonsils bilaterally mildly increased in size. PERRLA, EOMI. Evaluation of oropharynx showed tongue protrudes midline. Retrognathia. NECK: Supple, no JVD. Thyroid is not palpable. LUNGS: Clear to percussion and to auscultation. Good air exchange. No wheezing or rhonchi. HEART: S1 and S2, regular. No murmurs, gallops, or rubs. ABDOMEN: Soft and nontender. Bowel sounds are present. No organomegaly appreciated. EXTREMITIES: No clubbing or cyanosis. SORTER PACKER: Awake, alert, and oriented X3. Cranial nerves 2 to 7 intact. There is no fasciculation or atrophy. noted. No focal deficits observed. IMPRESSION: 1. Snoring, multiple awakenings from sleep, small oropharyngeal airspace, retrognathia, possible obstructive sleep apnea-hypopnea syndrome. 2. Difficulty to still initiate sleep secondary to restless legs symptoms, psychophysiological insomnia, and possible insomnia secondary to anxiety. 3. Chronic obstructive pulmonary disease. 4. History of bipolar. 5. History of depression. 6. History of anxiety. 7. History of episodes of tachycardia. 8. History of seizures in the past. 9. Hyperlipidemia. 10.History of benign tumor of the liver, was resected. 11.Acid reflux. PLAN: 1. Polysomnography for evaluation of the patient's breathing during the sleep. 2. Following plan after reading sleep study. 3. Sleep hygiene with time in bed for at least 7.5 to 8 hours. 4. The patient does not drive. 5. Stimulus control, no watching TV in bedroom. Thank you very much for referring this patient for consultation. CLOSING: Sincerely, MMODL / IJN: [id number] /
== END ==
LOC: 3 N SLEEP 15:50
PROVIDERS: ATTEND Internal Medicine
CPT/HCPCS: 99202

== ENCOUNTER 2024-08-20 19:25 | Outpatient (CLI) | payer OTHER ==
--- NOTE | 2024-08-23 11:06 | P.PCN ---
Description of Procedure: POLYSOMNOGRAPHY REPORT PROCEDURE(S)/DATE(S): Polysomnography 08/20/2024 CLINICAL: Patient has been seen in the sleep center for evaluation of obstructive sleep apnea-hypopnea syndrome. Please see my consultation. Sleep study has been done for evaluation of patient breathing during the sleep. PROCEDURE: The standard montage for clinical polysomnography included the electroencephalogram, the electrooculogram, the mentalis surface electromyography and Lead II cardiography. The respiratory battery consisted of measurements of nasal/buccal air flow, pressure transducer measurements from nose, thoracic and/or abdominal effort and intercostal surface electromyography. Video monitoring has been done to check for any parasomnia events. Nocturnal oxyhemoglobin saturations were obtained by finger oximetry. Step-sumner titration with positive airway pressure was utilized to control the respiratory events, if necessary. RESULTS: During the diagnostic sleep study sleep efficiency was in high range 97.4%. Latency to sleep onset was short 4.5 min. Sleep architecture showed stage NI was extremely short 0.7%, Delta sleep was high 23.7%, REM sleep was decreased to 12.4%. Respiratory channel showed 0 obstructive apneas, 0 mixed apneas, 5 central apneas, 2 hypopneas with lowest oxygen level 61%. Total apnea hypopnea index was 1.0. Heart rate was in the range between 75 and 88, average 82. EMG showed 0 periodic limb movements per hour. IMPRESSIONS: 1. No significant apneas or hypopneas documented during the sleep study. It was documented one period of oxygen desaturation, possibly artifactual. 2. No significant periodic limb movements have been documented. 3. Very high sleep efficiency and short sleep latency. 4. Patient presents with symptoms of significant excessive daytime sleepiness with [place] Sleepiness Scale 14. Please see other impressions from consultation PLAN: 1. I will see patient for follow-up visit to explain results of the test and recommendations. 2. Losing weight program. 3. Sleep hygiene with regular time in bed for at least 7-1/2 hours. 4. No driving if feeling sleepiness. Thank you very much for allowing me to participate in the management of your patient. Sincerely, Rm Trejo MD, PhD, FAASM. Diplomat of [place] [employer], Sleep Medicine Board by [place] [employer] Senior Manager of [facility] [place] cc: Roxy Love PAC
== END 2024-08-21 07:19 | disposition home or self-care (01) ==
LOC: 3 N SLEEP 19:25
PROVIDERS: ATTEND Internal Medicine
CPT/HCPCS: 95810